=== PATIENT | male | born 1965 | race Caucasian/White ===

== ENCOUNTER 2024-03-08 10:25 | Outpatient (CLI) | payer OTHER, SELFPAY ==
[2024-03-08 18:29] LABS: Basophils # 0.1 K/mm3 (0-0.2); Eosinophils # 0.1 K/mm3 (0.0-0.4); Eosinophils % 1.3 % (0.1-12.0); Hematocrit 50.9 % (42.0-52.0); Hemoglobin 16.4 g/dL (14.1-18.0); Lymphocytes # 2.2 K/mm3 (0.7-4.5); Lymphocytes % 29.6 % (10-50); Mean Corpuscular HGB Conc 32.2 g/dL (31.8-35.4); Mean Corpuscular Hemoglobin 30.4 pg (27.0-31.2); Mean Corpuscular Volume 94.4 fl (80-94); Mean Platelet Volume 9.1 fl (7.4-10.4); Monocytes # 0.7 K/mm3 (0.1-1.0); Monocytes % 9.7 % (1.7-9.3); Neutrophils # 4.3 K/mm3 (1.8-7.8); Neutrophils % 58.5 % (37.0-80.0); Platelet Count 205 K/mm3 (142-424); Red Blood Count 5.39 M/mm3 (4.60-6.20); Red Cell Distribution Width 14.9 % (11.5-17.5); White Blood Count 7.4 K/mm3 (4.8-10.8)
[2024-03-08 18:35] LABS: Alanine Aminotransferase 47 U/L (12-78); Albumin Level 4.3 g/dl (3.5-5.0); Albumin/Globulin Ratio 1.5 (1.1-1.8); Alkaline Phosphatase 115 U/L (38-126); Anion Gap 13.8 mEq/L (5-15); Aspartate Amino Transferase 35 U/L (17-59); Bilirubin,Total 0.8 mg/dl (0.2-1.3); Blood Urea Nitrogen 11 mg/dl (9-20); Calcium 9.1 mg/dl (8.4-10.2); Carbon Dioxide 29 mmol/L (22.0-30.0); Chloride 99 mmol/L (98-107); Chol/HDL Ratio 6.8 (1-3.5); Cholesterol 258 mg/dl (140-200); Estimated Glomerular Filt Rate 100 ml/min (>60); GFR (African American) 121 ML/MIN (>60); Globulin 2.8 g/dL (1.3-3.2); Glucose 167 mg/dl (74-100); HDL Cholesterol 38 mg/dl (40-60); Potassium 3.8 mmoL/L (3.5-5.1); Sodium 138 mmol/L (136-145); Total Protein,Serum 7.1 g/dl (6.3-8.2); Triglycerides 281 mg/dl (30-150); VLDL Cholesterol 56 mg/dL (0-40)
[2024-03-08 18:45] LABS: Direct LDL Cholesterol 158.85 mg/dL (100-129)
[2024-03-08 19:07] LABS: Thyroid Stimulating Hormone 1.55 uIU/mL (0.465-4.68)
[2024-03-08 19:26] LABS: Vitamin B12 882 pg/mL (239-931)
[2024-03-08 19:49] LABS: Creatinine,Urine Random 45 mg/dL (Not Estab.); Microalbumin < 6.000 mg/L (0-16.7)
[2024-03-08 20:29] LABS: Hemoglobin A1C 7.5 % (4.0-6.0)
[2024-03-10 13:04] LABS: Testosterone,Total 119 ng/dL (264-916)
== END 2024-03-08 23:59 | disposition home or self-care (01) ==
LOC: LAB.DROPOF 03-09 10:25
PROVIDERS: PCP Nurse Practitioner; Visit Provider Nurse Practitioner
DX: E11.9 Type 2 diabetes mellitus without complications (principal); I10 Essential (primary) hypertension; K21.9 Gastro-esophageal reflux disease without esophagitis; E34.9 Endocrine disorder, unspecified; Z12.5 Encounter for screening for malignant neoplasm of prostate; E78.5 Hyperlipidemia, unspecified; Z79.899 Other long term (current) drug therapy
CPT/HCPCS: 80053; 80061; 82043; 82306; 82570; 82607; 83036; 84403; 84443; 85025

== ENCOUNTER 2024-03-27 09:40 | Outpatient (CLI) | payer OTHER, SELFPAY ==
[2024-03-27 11:03] LABS: Prostate Specific Ag Screen 4.5 ng/ml (0.0-4.0); Thyroid Stimulating Hormone 1.54 uIU/mL (0.465-4.68)
[2024-03-27 16:53] LABS: Microscopic, Urine URINE MICROSCOPIC (MICROSCOPIC)
[2024-03-27 18:18] LABS: Appearance,Urine CLEAR (Clear); Bilirubin,Urine Negative (Negative); Blood, Urine Negative (Negative); Color,Urine YELLOW (Yellow); Glucose,Urine (UA) 3+ (Negative); Ketones,Urine Negative (Negative); Leukocyte Esterase,Urine Negative (Negative); Nitrate,Urine Negative (Negative); PH,Urine 5.5 (5.0-8.5); Protein,Urine Negative (Negative); Urobilinogen,Urine 0.2 EU/dl (0.2)
[2024-03-27 19:01] LABS: Squamous Epithelial Cell,Urine Occasional #/hpf (0-5)
[2024-03-28 08:33] LABS: Sex Hormone Binding Globulin 15.1 nmol/L (19.3-76.4)
[2024-03-28 09:18] LABS: DHEA-Sulfate 74.2 ug/dL (48.9-344.2); FSH 5.5 mIU/mL (1.5-12.4); LH 4.5 mIU/mL (1.7-8.6); Prolactin 4.7 ng/mL (3.6-25.2); Prostate Specific Ag 4.5 ng/mL (0.0-4.0)
[2024-04-05 08:55] LABS: Dihydrotestosterone DHT 10
== END 2024-03-27 23:59 | disposition home or self-care (01) ==
LOC: LAB 09:40
PROVIDERS: PCP Nurse Practitioner; Visit Provider Urology
DX: N40.0 Benign prostatic hyperplasia without lower urinary tract symptoms (principal); R97.20 Elevated prostate specific antigen [PSA]; E29.1 Testicular hypofunction; N52.9 Male erectile dysfunction, unspecified
CPT/HCPCS: 36415; 81001; 82626; 82670; 83001; 83002; 84146; 84153; 84154; 84270; 84443; G0103

== ENCOUNTER 2024-03-29 12:41 | Outpatient (CLI) | payer OTHER, SELFPAY ==
--- NOTE | 2024-03-29 12:42 | CT_ITS ---
FINAL REPORT TECHNIQUE: Axial images were obtained from the lung apex to the mid abdomen by computed tomography. This study was performed with techniques to keep radiation doses as low as reasonably achievable (ALARA). Individualized dose reduction techniques using automated exposure control or adjustment of mA and/or kV according to the patient's size were employed. CLINICAL HISTORY: lung cancer screening former smoker 1.5-2ppd x13 years FINDINGS: CHEST CT LOW DOSE CTDI vol (mGy): 2.90 DLP (mGy-cm): 106.55 There is no axillary adenopathy. There is no hilar or mediastinal adenopathy. The heart is normal in size. There is no pericardial or pleural effusion. Lung window images demonstrate no suspicious infiltrate or nodule. Limited images of the upper abdomen demonstrate fatty infiltration of the liver. Patient is status post cholecystectomy. IMPRESSION: Lung RADS category 1. Recommend 12 month follow-up low-dose chest CT. Reviewed, Interpreted and Dictated by Peyman Lopez III, MD Transcribed by Maude Sparks Authenticated and [facility]
== END 2024-03-29 23:59 | disposition home or self-care (01) ==
LOC: RAD 12:42
PROVIDERS: PCP Nurse Practitioner; Visit Provider Nurse Practitioner
DX: Z87.891 Personal history of nicotine dependence (principal)
CPT/HCPCS: 71271

== ENCOUNTER 2024-06-14 09:30 | Outpatient (CLI) | payer OTHER, SELFPAY ==
[2024-06-14 19:28] LABS: Alanine Aminotransferase 39 U/L (12-78); Albumin Level 4.1 g/dl (3.5-5.0); Albumin/Globulin Ratio 1.5 (1.1-1.8); Alkaline Phosphatase 97 U/L (38-126); Anion Gap 11.1 mEq/L (5-15); Aspartate Amino Transferase 28 U/L (17-59); Bilirubin,Total 0.7 mg/dl (0.2-1.3); Blood Urea Nitrogen 14 mg/dl (9-20); Carbon Dioxide 29 mmol/L (22.0-30.0); Chloride 106 mmol/L (98-107); Chol/HDL Ratio 3.9 (1-3.5); Cholesterol 157 mg/dl (140-200); Estimated Glomerular Filt Rate 100 ml/min (>60); GFR (African American) 121 ML/MIN (>60); Globulin 2.7 g/dL (1.3-3.2); Glucose 223 mg/dl (74-100); HDL Cholesterol 40 mg/dl (40-60); Potassium 4.1 mmoL/L (3.5-5.1); Sodium 142 mmol/L (136-145); Total Protein,Serum 6.8 g/dl (6.3-8.2); Triglycerides 219 mg/dl (30-150); VLDL Cholesterol 44 mg/dL (0-40)
[2024-06-14 19:39] LABS: Direct LDL Cholesterol 87.09 mg/dL (100-129)
[2024-06-14 19:45] LABS: 25-OH Vitamin D, Total 47.5 ng/mL (30-100)
[2024-06-14 19:55] LABS: Hemoglobin A1C 6.6 % (4.0-6.0)
== END 2024-06-14 23:59 | disposition home or self-care (01) ==
LOC: LAB.DROPOF 06-15 12:33
PROVIDERS: PCP Nurse Practitioner; Visit Provider Nurse Practitioner
DX: E11.9 Type 2 diabetes mellitus without complications (principal); Z79.84 Long term (current) use of oral hypoglycemic drugs; I10 Essential (primary) hypertension; E78.5 Hyperlipidemia, unspecified; E55.9 Vitamin D deficiency, unspecified; Z87.891 Personal history of nicotine dependence
CPT/HCPCS: 80053; 80061; 82306; 83036

== ENCOUNTER 2024-07-31 12:05 | Outpatient (CLI) | payer OTHER, SELFPAY ==
[2024-07-31 20:33] LABS: Hemoglobin A1C 7.1 % (4.0-6.0)
[2024-07-31 20:48] LABS: Alanine Aminotransferase 48 U/L (12-78); Albumin Level 4.4 g/dl (3.5-5.0); Albumin/Globulin Ratio 1.7 (1.1-1.8); Alkaline Phosphatase 146 U/L (38-126); Anion Gap 10.2 mEq/L (5-15); Aspartate Amino Transferase 33 U/L (17-59); Bilirubin,Total 0.7 mg/dl (0.2-1.3); Blood Urea Nitrogen 19 mg/dl (9-20); Calcium 9.3 mg/dl (8.4-10.2); Carbon Dioxide 27 mmol/L (22.0-30.0); Chloride 103 mmol/L (98-107); Estimated Glomerular Filt Rate 87 ml/min (>60); GFR (African American) 105 ML/MIN (>60); Globulin 2.6 g/dL (1.3-3.2); Glucose 132 mg/dl (74-100); Potassium 4.2 mmoL/L (3.5-5.1); Sodium 136 mmol/L (136-145)
== END 2024-07-31 23:59 | disposition home or self-care (01) ==
LOC: LAB.DROPOF 08-01 10:07
PROVIDERS: PCP Nurse Practitioner; Visit Provider Nurse Practitioner
DX: E11.9 Type 2 diabetes mellitus without complications (principal); Z79.85 Long-term (current) use of injectable non-insulin antidiabetic drugs
CPT/HCPCS: 80053; 83036

== ENCOUNTER 2024-08-16 16:17 | Outpatient (CLI) | payer OTHER, SELFPAY ==
[2024-08-16 17:12] LABS: Erythrocyte Sedimentation Rate 11 mm/hr (0-20)
[2024-08-18 13:15] LABS: Sjogren's Anti-SS-A <0.2 AI (0.0-0.9); Sjogren's Anti-SS-B <0.2 AI (0.0-0.9)
== END 2024-08-16 23:59 | disposition home or self-care (01) ==
LOC: LAB 16:17
PROVIDERS: PCP Nurse Practitioner; Visit Provider Otolaryngology
DX: K11.7 Disturbances of salivary secretion (principal); Z72.0 Tobacco use
CPT/HCPCS: 36415; 85651; 86235

== ENCOUNTER 2024-11-21 13:29 | Outpatient (CLI) | payer OTHER, SELFPAY ==
[2024-11-21 18:46] LABS: Microalbumin/Creatinine Ratio 13.3
[2024-11-21 18:51] LABS: Alanine Aminotransferase 48 U/L (12-78); Albumin Level 4.3 g/dl (3.5-5.0); Albumin/Globulin Ratio 1.9 (1.1-1.8); Alkaline Phosphatase 105 U/L (38-126); Aspartate Amino Transferase 34 U/L (17-59); Bilirubin,Total 0.3 mg/dl (0.2-1.3); Blood Urea Nitrogen 15 mg/dl (9-20); Calcium 9.1 mg/dl (8.4-10.2); Carbon Dioxide 24 mmol/L (22.0-30.0); Chloride 106 mmol/L (98-107); Chol/HDL Ratio 5.3 (1-3.5); Cholesterol 158 mg/dl (140-200); Estimated Glomerular Filt Rate 116 ml/min (>60); GFR (African American) 140 ML/MIN (>60); Globulin 2.3 g/dL (1.3-3.2); Glucose 133 mg/dl (74-100); HDL Cholesterol 30 mg/dl (40-60); Sodium 141 mmol/L (136-145); Total Protein,Serum 6.6 g/dl (6.3-8.2); Triglycerides 274 mg/dl (30-150); VLDL Cholesterol 55 mg/dL (0-40)
[2024-11-21 19:00] LABS: Creatinine,Urine Random 68 mg/dL (Not Estab.); Hemoglobin A1C 6.8 % (4.0-6.0)
[2024-11-21 19:01] LABS: Direct LDL Cholesterol 98.77 mg/dL (100-129)
[2024-11-21 19:11] LABS: 25-OH Vitamin D, Total 63.3 ng/mL (30-100)
== END 2024-11-21 23:59 | disposition home or self-care (01) ==
LOC: LAB.DROPOF 11-22 13:30
PROVIDERS: PCP Nurse Practitioner; Visit Provider Nurse Practitioner
DX: E78.5 Hyperlipidemia, unspecified (principal); I10 Essential (primary) hypertension; K21.9 Gastro-esophageal reflux disease without esophagitis; E55.9 Vitamin D deficiency, unspecified; E11.9 Type 2 diabetes mellitus without complications; Z79.84 Long term (current) use of oral hypoglycemic drugs; F17.200 Nicotine dependence, unspecified, uncomplicated
CPT/HCPCS: 80053; 80061; 82043; 82306; 82570; 83036

== ENCOUNTER 2025-01-08 10:21 | Emergency (ER) | payer OTHER, SELFPAY ==
[2025-01-08 10:29] VITALS: BP 139/89; PULSE 70; RESP 18; TEMP 36.9; O2SAT 97; BMI 33.2
--- NOTE | 2025-01-08 10:48 | PC.NURSE ---
BLOOD WORK SENT TO LAB
[2025-01-08 10:55] LABS: Basophils # 0.1 K/mm3 (0-0.2); Basophils % 0.8 % (0.1-2.0); Eosinophils # 0.1 K/mm3 (0.0-0.4); Eosinophils % 0.9 % (0.1-12.0); Hematocrit 40.2 % (42.0-52.0); Hemoglobin 13.5 g/dL (14.1-18.0); Lymphocytes # 1.2 K/mm3 (0.7-4.5); Lymphocytes % 19.2 % (10-50); Mean Corpuscular HGB Conc 33.6 g/dL (31.8-35.4); Mean Corpuscular Hemoglobin 29.3 pg (27.0-31.2); Mean Corpuscular Volume 87.4 fl (80-94); Mean Platelet Volume 9.3 fl (7.4-10.4); Monocytes # 0.8 K/mm3 (0.1-1.0); Monocytes % 11.9 % (1.7-9.3); Neutrophils # 4.3 K/mm3 (1.8-7.8); Neutrophils % 66.7 % (37.0-80.0); Platelet Count 155 K/mm3 (142-424); Red Cell Distribution Width 12.9 % (11.5-17.5); White Blood Count 6.5 K/mm3 (4.8-10.8)
[2025-01-08 10:58] VITALS: BP 138/88; PULSE 70; O2SAT 97
[2025-01-08 11:00] VITALS: BP 117/79; PULSE 74; O2SAT 97
--- NOTE | 2025-01-08 11:00 | PC.NURSE ---
MED LIST UPDATED, PT UPDATED ON POC. CALL LIGHT WITHIN REACH. NO NEEDS AT THIS TIME
--- NOTE | 2025-01-08 11:00 | HMH.EDGENADL ---
Discharge Plan Disposition Patient Disposition: Home, Self-Care Condition: Good Prescriptions Prescriptions: No Action Fish Oil 100-160-1,000 mg capsule 2 cap PO DAILY (DME) Dexcom G7 Internal Medicine Physician Assistant Misc See Rx Instructions .Route Qty: 1 11RF Rx Instructions: As directed fluticasone propionate 50 mcg/actuation spray,suspension 1 spray intranasal DAILY Qty: 48 3RF Rx Instructions: administer into each nostril triamcinolone acetonide 0.1 % paste 1 applic dental BID 10 Days Qty: 5 1RF Rx Instructions: use after food and/or drink and/or oral hygiene amlodipine 5 mg tablet 5 mg PO DAILY Qty: 90 1RF atorvastatin [Lipitor] 20 mg tablet 20 mg PO DAILY Qty: 90 1RF (DME) Dexcom G7 Sensor Device See Rx Instructions .Route Qty: 9 4RF Rx Instructions: As directed dapagliflozin propanediol [Farxiga] 10 mg tablet 10 mg PO DAILY Qty: 90 1RF lisinopril 20 mg tablet 20 mg PO DAILY Qty: 90 1RF meloxicam 15 mg tablet 15 mg PO DAILY Qty: 90 1RF metformin 500 mg tablet extended release 24 hr 1,000 mg PO DAILY Qty: 180 1RF methocarbamol 500 mg tablet 500 - 1,000 mg PO HS Qty: 180 1RF omeprazole 20 mg capsule,delayed release(DR/EC) 20 mg PO DAILY Qty: 90 1RF oxybutynin chloride 10 mg tablet extended release 24hr 10 mg PO DAILY Qty: 90 3RF pantoprazole [Protonix] 40 mg tablet,delayed release (DR/EC) 40 mg PO DAILY Qty: 90 1RF tamsulosin [Flomax] 0.4 mg capsule 0.4 mg PO DAILY 90 Days Qty: 90 1RF glimepiride 2 mg tablet 2 mg PO BIDWMEAL Qty: 180 1RF aripiprazole [Abilify] 10 mg tablet 10 mg PO DAILY Qty: 90 0RF buspirone 10 mg tablet 10 mg PO TID PRN (Reason: anxiety) Qty: 270 1RF desvenlafaxine succinate [Pristiq] 100 mg tablet extended release 24 hr 100 mg PO DAILY Qty: 90 3RF trazodone 50 mg tablet 50 - 75 mg PO DAILY Qty: 135 0RF prazosin 1 mg capsule 1 mg PO HS Qty: 90 3RF prazosin 2 mg capsule 2 mg PO HS Qty: 90 1RF hydroxyzine pamoate 25 mg capsule 25 - 50 mg PO HS PRN (Reason: sleep) Qty: 180 1RF cholecalciferol (vitamin D3) 125 mcg (5,000 unit) tablet 125 mcg PO DAILY Qty: 90 1RF Referrals Follow up/Referrals: Liliane Tabares APRN [Primary Care Provider] - See instructions Activity Restrictions/Add. Instructions Additional Instructions/Restrictions: You were evaluated in the emergency department today. Please keep the wound clean and dry. Monitor for any worsening of redness, warmth, pain, or swelling. Monitor for any pus draining from the wound. Return to the emergency department right away for new or worsening symptoms. Follow-up with your primary care provider over the next week for recheck of your wound. Clinical Impressions Clinical Impression: Brown recluse spider bite Instructions Patient Instructions: DI for Insect Bites and Stings, DI for Spider Bites Print Language Print Language: Hebrew Discharge ED Provider: Katey Gatica General Adult HPI General Chief complaint: Skin/Abscess/Foreign Body Stated complaint: bitten by brown recluse Time Seen by Provider: 01/08/25 10:37 Mode of Arrival: Ambulatory Description of Symptoms (Recalled from ER Triage Doc. by RN): PT REPORTS BROWN RECLUSE SPIDER BITE UNDER RIGHT BREAST, NOTED SOMETIME LAST WEEK WHILE AT WORK. RED AREA NOTED History of Present Illness HPI narrative: This patient is a 59-year-old male with a history of type 2 diabetes, hypertension, hyperlipidemia, PTSD, NITIN, BPH presenting to the emergency department for evaluation with concern for a possible brown recluse bite to his right upper abdomen. 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 He notes that initially he had a red area but now has started to note some dark area of discoloration in the center of the wound, concerning him for brown recluse bite. No easy bleeding or bruising noted, no significant abdominal pain, vomiting, changes bowel movements, or other concerns. He has not had any sort of fever. He has localized redness and pain, but otherwise has not noted any significant concerns or complaints. Related Data Home Medications ?Medication ?Instructions ?Recorded ?Confirmed omega 8-oxe-gxs-fish oil 100 2 cap PO DAILY 03/08/24 01/08/25 mg-160 mg-1,000 mg capsule (Fish Oil) Previous Rx's ?Medication ?Instructions ?Recorded blood-glucose meter,continuous #1 ea 06/14/24 (Dexcom G7 Internal Medicine Physician Assistant) fluticasone propionate 50 1 spray intranasal DAILY #48 grams 06/14/24 mcg/actuation nasal spray,suspension triamcinolone acetonide 0.1 % 1 applic dental BID 10 days #5 08/16/24 dental paste grams aripiprazole 10 mg tablet (Abilify) 10 mg PO DAILY #90 tabs 09/26/24 buspirone 10 mg tablet 10 mg PO TID PRN anxiety #270 tabs 09/26/24 desvenlafaxine succinate 100 mg 100 mg PO DAILY #90 tabs 09/26/24 tablet,extended release 24 hr (Pristiq) amlodipine 5 mg tablet 5 mg PO DAILY #90 tabs 11/21/24 atorvastatin 20 mg tablet (Lipitor) 20 mg PO DAILY #90 tabs 11/21/24 blood-glucose sensor (Dexcom G7 #9 ea 11/21/24 Sensor device) dapagliflozin propanediol 10 mg 10 mg PO DAILY #90 tabs 11/21/24 tablet (Farxiga) glimepiride 2 mg tablet 2 mg PO BIDWMEAL #180 tabs 11/21/24 hydroxyzine pamoate 25 mg capsule 25 - 50 mg (1 - 2 x 25 mg) PO HS 11/21/24 PRN sleep #180 caps lisinopril 20 mg tablet 20 mg PO DAILY #90 tabs 11/21/24 meloxicam 15 mg tablet 15 mg PO DAILY #90 tabs 11/21/24 metformin 500 mg tablet,extended 1,000 mg (2 x 500 mg) PO DAILY 11/21/24 release 24 hr #180 tabs methocarbamol 500 mg tablet 500 - 1,000 mg (1 - 2 x 500 mg) PO 11/21/24 HS #180 tabs omeprazole 20 mg capsule,delayed 20 mg PO DAILY #90 caps 11/21/24 release oxybutynin chloride 10 mg 10 mg PO DAILY #90 tabs 11/21/24 tablet,extended release 24 hr pantoprazole 40 mg tablet,delayed 40 mg PO DAILY #90 tabs 11/21/24 release (Protonix) prazosin 1 mg capsule 1 mg PO HS #90 caps 11/21/24 prazosin 2 mg capsule 2 mg PO HS #90 caps 11/21/24 tamsulosin 0.4 mg capsule (Flomax) 0.4 mg PO DAILY 90 days #90 caps 11/21/24 trazodone 50 mg tablet 50 - 75 mg (1 - 1.5 x 50 mg) PO 11/21/24 DAILY #135 tabs cholecalciferol (vitamin D3) 125 125 mcg PO DAILY #90 tabs 11/23/24 mcg (5,000 unit) tablet Allergies Allergy/AdvReac Type Severity Reaction Status Date / Time acetaminophen (From Percocet) Allergy Unknown Hives Verified 01/08/25 11:03 oxycodone (From Percocet) Allergy Unknown Hives Verified 01/08/25 11:03 Penicillins Allergy Hives Verified 01/08/25 11:03 aspirin AdvReac Mild Nausea Verified 01/08/25 11:03 [facility] Disclaimer: The information contained in this section may have been updated after the patient was seen, as this information can be updated by other users. Medical History NITIN (obstructive sleep apnea) Vitamin D deficiency Sleep disturbances Neoplasm of uncertain behavior of skin of face Insomnia, unspecified Personal history of smoking Allergic rhinitis BPH (benign prostatic hyperplasia) Erectile dysfunction Hyperlipidemia Hypotestosteronemia GERD (gastroesophageal reflux disease) Essential hypertension Type 2 diabetes mellitus without complications Tear meniscus knee High cholesterol Diabetes Hypertension Depression Anxiety Low testosterone Erectile disorder PTSD (post-traumatic stress disorder) Surgical History History of colonoscopy History of left knee replacement Hx of cholecystectomy H/O hernia repair Family History Father Cancer Stroke Grandmother Stroke Grandfather Coronary artery disease Social History Smoking Status: Current every day smoker alcohol intake: current alcohol intake frequency: a few times a week substance use type: denies use current occupational status: employed Travel in the last 8 weeks: Inside the [place] number of children: 8 Have you lived/traveled outside [place] in past 30 days?: No Contact w/someone who lives/traveled outside [place] past 30 days?: No Exposure to someone with infectious disease in past 14 days?: No Do you have a fever (greater than 100.4 F or 38 C)?: No Have you tested positive for COVID-19: No Exposed to someone with COVID-19 in past 14 days?: No Do you have a sore throat?: No Do you have a cough?: No Do you have any weakness?: No Do you have any diarrhea?: No Are you experiencing any unusual bleeding?: No Do you have any muscle aches/pain?: No Do you have any abdominal pain?: No Are you experiencing loss of taste or smell?: No Other Medical History Have you received the Flu Vaccine for this season: No Have you received the Pneumonia Vaccine: No ROS Obtained: Yes All systems reviewed & no additional complaints except as documented Physical Exam General General appearance: alert and in no apparent distress Head Head exam: atraumatic and normocephalic Eye Eye exam: Present normal appearance, PERRL and EOMI ENT ENT exam: Present normal exam, normal oropharynx, mucous membranes moist and normal external ear exam Neck Neck exam: Present normal inspection, full ROM and trachea midline; Absent tenderness Chest Chest inspection: Present normal inspection and symmetric chest wall rise; Absent tenderness Respiratory Respiratory exam: Present normal lung sounds bilaterally; Absent respiratory distress, wheezes, stridor or accessory muscle use Cardiovascular Cardiovascular exam: Present regular rate and normal rhythm Abdominal Exam Abdominal exam: Present soft; Absent distention, tenderness or guarding Extremities Exam Extremities exam: Present normal inspection, full ROM and normal capillary refill; Absent tenderness or edema Back Exam Back exam: Present normal inspection and full ROM; Absent tenderness Neurological Exam Neurological exam: Present alert, oriented X3, CN II-XII intact and normal gait; Absent motor sensory deficit Psychiatric Psychiatric exam: Present normal affect and normal mood Skin Skin exam: Present warm and dry Expanded Skin Exam Body image: 1. Localized area of erythema (6cm x 2cm) with central subcentimeter hemorrhagic blister, no induration or fluctuance, no purulence Medical Decision Making Medical Records Medical records reviewed: Yes I reviewed the patient's medical records. Screening: Per USPSTF and CDC recommendations, given the prevalence of disease in our region, it is our hospital?s policy to screen for HIV and viral Hepatitis for all patients aged 18 and over and those with ongoing risk factors. G[place]berto Inquiry Pt receiving controlled substance: No Vital Signs: 01/08/25 10:29 01/08/25 10:58 01/08/25 11:00 Temperature 98.4 F Temperature Source Oral Pulse Rate 70 74 Pulse Rate [Radial] 70 Respiratory Rate 18 Blood Pressure 138/88 117/79 Blood Pressure [Right Arm] 139/89 Blood Pressure Mean [Right Arm] 105 Blood Pressure Source Blood Pressure Source [Right Arm] Automatic Cuff Blood Pressure Position Blood Pressure Position [Right Arm] Sitting 02 Sat by Pulse Oximetry 97 97 97 Oxygen Delivery Method Room Air Room Air Room Air 01/08/25 11:28 Temperature 98.4 F Temperature Source Oral Pulse Rate 78 Pulse Rate [Radial] Respiratory Rate 18 Blood Pressure 117/79 Blood Pressure [Right Arm] Blood Pressure Mean [Right Arm] Blood Pressure Source Automatic Cuff Blood Pressure Source [Right Arm] Blood Pressure Position Sitting Blood Pressure Position [Right Arm] 02 Sat by Pulse Oximetry Oxygen Delivery Method Room Air Lab Data Lab results reviewed: Yes I reviewed the patient's lab results. Lab Results 01/08/25 10:46: WBC 6.5, RBC 4.60, Hgb 13.5 L, Hct 40.2 L, MCV 87.4, MCH 29.3, MCHC 33.6, RDW 12.9, Plt Count 155, MPV 9.3, Neut % (Auto) 66.7, Lymph % (Auto) 19.2, Cobb % (Auto) 11.9 H, Eos % (Auto) 0.9, Baso % (Auto) 0.8, Neut # (Auto) 4.3, Lymph # (Auto) 1.2, Cobb # (Auto) 0.8, Eos # (Auto) 0.1, Baso # (Auto) 0.1, PT 10.9, INR 0.97, APTT 25.7, Sodium 136, Potassium 3.8, Chloride 106, Carbon Dioxide 23, Anion Gap 10.8, BUN 17, Creatinine 0.70, Estimated Creat Clear 181, Estimated GFR 116, Est GFR ( Amer) 140, Glucose 119 H, Calcium 9.0, Total Bilirubin 0.5, AST 32, ALT 42, Alkaline Phosphatase 106, Total Protein 6.4, Albumin 4.3, Globulin 2.1, Albumin/Globulin Ratio 2.0 H, HCV Ab MICA w/Rflx PCR Qn Negative, HIV Ag/Ab Combo Qual Negative 01/08/25 10:46 01/08/25 10:46 Orders (Tests/Meds): ORDERS Category Date Time Status Complete Blood Count Auto Diff Stat Lab 01/08/25 10:46 Completed Comprehensive Metabolic Panel Stat Lab 01/08/25 10:46 Completed HIV Combo Stat Lab 01/08/25 10:46 Completed Hepatitis C Ab Qual. W/ RFX Stat Lab 01/08/25 10:46 Completed PT INR [Prothrombin Time INR] Stat Lab 01/08/25 10:46 Completed PTT [Activated Partial Thrombo Time] Stat Lab 01/08/25 10:46 Completed Medical Decision Narrative: In summary, this patient is a 59-year-old male presenting to the Emergency Department for evaluation of possible brown recluse bite to the right upper abdomen. Differential diagnoses considered include but are not limited to viral close bite, other insect bite, cellulitis, abscess. Ruling out the most morbid conditions drove assessment. It should be noted patient's history includes hypertension, hyperlipidemia, diabetes which may or may not be at goal therapy. This complicates all aspects of care by increasing patient's risk for morbidity. I reviewed patient's past medical records and noted prior PCP evaluations for maintenance of his chronic medical issues. On exam, the patient is sitting upright in no acute distress. Vitals are normal on cardiac telemetry. He has a 6 x 2 cm localized area of erythema to the right upper abdomen with a central hemorrhagic blister that is subcentimeter. No induration, fluctuance, or purulence. Given the central hemorrhagic area, it is possible this could be a brown recluse bite. We are now a week out without significant ulceration. He is up to date on tetanus. Workup included CBC, CMP, coags. On reassessment, the patient is sitting upright in no acute distress. Labs are reassuring with normal CBC, chemistry, no coagulopathy. Given this, I feel it is appropriate for discharge with instructions for wound care and strict return precautions. He was discharged after all questions were answered. Critical Care Critical Care Time Critical Care Time: No
[2025-01-08 11:01] LABS: Albumin Level 4.3 g/dl (3.5-5.0); Chloride 106 mmol/L (98-107); Potassium 3.8 mmoL/L (3.5-5.1); Sodium 136 mmol/L (136-145)
[2025-01-08 11:03] LABS: Blood Urea Nitrogen 17 mg/dl (9-20)
[2025-01-08 11:04] LABS: Alanine Aminotransferase 42 U/L (12-78); Alkaline Phosphatase 106 U/L (38-126); Anion Gap 10.8 mEq/L (5-15); Aspartate Amino Transferase 32 U/L (17-59); Bilirubin,Total 0.5 mg/dl (0.2-1.3); Carbon Dioxide 23 mmol/L (22.0-30.0); Creatinine Clearance Estimated 181 mL/min (50-200); Estimated Glomerular Filt Rate 116 ml/min (>60); GFR (African American) 140 ML/MIN (>60); Globulin 2.1 g/dL (1.3-3.2); Glucose 119 mg/dl (74-100); Total Protein,Serum 6.4 g/dl (6.3-8.2)
[2025-01-08 11:21] LABS: Activated Partial Thrombo Time 25.7 seconds (22.8-30.6); INR 0.97 (0.9-1.1); Prothrombin Time 10.9 seconds (10.1-12.5)
--- NOTE | 2025-01-08 11:27 | PC.NURSE ---
DR CONN AT BEDSIDE TO UPDATE PT
[2025-01-08 11:28] VITALS: BP 117/79; PULSE 78; RESP 18; TEMP 36.9; O2SAT 98
[2025-01-08 12:00] LABS: HIV Combo NEGATIVE (Negative)
[2025-01-08 12:08] LABS: Hepatitis C Ab Qual. W/ RFX NEGATIVE (Negative)
== END 2025-01-08 11:30 | disposition home or self-care (01) ==
PROVIDERS: Emergency Provider Emergency Medicine; PCP Nurse Practitioner
DX: T63.331A Toxic effect of venom of brown recluse spider, accidental (unintentional), initial encounter (principal); Z72.0 Tobacco use; Y92.89 Other specified places as the place of occurrence of the external cause
CPT/HCPCS: 80053; 85025; 85610; 85730; 86803; 87389; 99283

== ENCOUNTER 2025-02-21 08:51 | Outpatient (CLI) | payer OTHER, SELFPAY ==
[2025-02-21 19:06] LABS: Alanine Aminotransferase 33 U/L (12-78); Albumin Level 4.2 g/dl (3.5-5.0); Albumin/Globulin Ratio 1.9 (1.1-1.8); Alkaline Phosphatase 108 U/L (38-126); Anion Gap 9.1 mEq/L (5-15); Aspartate Amino Transferase 26 U/L (17-59); Bilirubin,Total 0.6 mg/dl (0.2-1.3); Blood Urea Nitrogen 16 mg/dl (9-20); Calcium 9.1 mg/dl (8.4-10.2); Carbon Dioxide 24 mmol/L (22.0-30.0); Chloride 109 mmol/L (98-107); Cholesterol 141 mg/dl (140-200); Estimated Glomerular Filt Rate 116 ml/min (>60); GFR (African American) 140 ML/MIN (>60); Globulin 2.2 g/dL (1.3-3.2); Glucose 112 mg/dl (74-100); HDL Cholesterol 35 mg/dl (40-60); Potassium 4.1 mmoL/L (3.5-5.1); Sodium 138 mmol/L (136-145); Total Protein,Serum 6.4 g/dl (6.3-8.2); Triglycerides 183 mg/dl (30-150); VLDL Cholesterol 37 mg/dL (0-40)
[2025-02-21 19:10] LABS: Hemoglobin A1C 6.6 % (4.0-6.0)
[2025-02-21 19:17] LABS: Direct LDL Cholesterol 76.14 mg/dL (100-129)
[2025-02-21 19:35] LABS: Thyroid Stimulating Hormone 0.83 uIU/mL (0.465-4.68)
[2025-02-21 19:54] LABS: Vitamin B12 636 pg/mL (239-931)
== END 2025-02-21 23:59 | disposition home or self-care (01) ==
LOC: LAB.DROPOF 02-23 08:51
PROVIDERS: PCP Nurse Practitioner; Visit Provider Nurse Practitioner
DX: E78.5 Hyperlipidemia, unspecified (principal); E11.9 Type 2 diabetes mellitus without complications; I10 Essential (primary) hypertension; K21.9 Gastro-esophageal reflux disease without esophagitis; F17.200 Nicotine dependence, unspecified, uncomplicated; Z79.84 Long term (current) use of oral hypoglycemic drugs
CPT/HCPCS: 80053; 80061; 82607; 83036; 84443

== ENCOUNTER 2025-08-22 10:56 | Outpatient (CLI) | payer OTHER, SELFPAY ==
--- OUTSIDE RECORDS SUMMARY | 2025-07-12 10:33 | XMS_ITS | Encounter Summary ---
Author Organization [place] [address] Care Team Providers Care Director Medicaid Name Role Phone Irving Amaya MD Primary Care Provider Reason for Visit * Physical Therapy (Routine) - Authorized Specialty Diagnoses / Procedures Referred By Contac t Referred To Contact Physical Therapy Diagnoses DX UNK Procedures PT EVAL [address] [facility] Physical Therapy [place] [id number] Phone: tel: fax: Referral ID Status Reason Start Date Expiration Date V isits Requested Visits Authorized [id number] Authorized 05/30/2025 05/30/2026 8 25 Encounter Details Date Type Department Care Team (Latest Contact Info) Description 07/12/2025 10:33 AM EDT - 07/12/2025 11:44 AM EDT Hospital Encounter [facility] [place] [address] Brandy Edmondson PT Discharge Disposition: Home or Self Care Social History Tobacco Use Types Packs/Day Years Used Date Smoking Tobacco: Former Cigarettes 1 18 0 10/25/1983 - 10/25/2001 Smokeless Tobacco: Former Snuff Quit: 11/25/2022 Comments:Oral Tobacco Alcohol Use Standard Drinks/Week Comments Yes 0 (1 standard drink = 0.6 oz pure alcohol) One to two drinks of Alcohol per month Overall Financial Resource Strain (CARDIA) Answe r Date Recorded How hard is it for you to pa y for the very basics like food, housing, medical care, and heating? Somewhat hard 06/14/2023 PHQ-2 Answer Date Recorded PHQ-2 Score 0 03/15/2019 [facility] - Occupational Stress Questionnaire Answer Date Recorded Do you feel stress - tense, restless, nervous, or anxious, or unable to sleep at night because your mind is troubled all the time - these days? Rather much 06/14/2023 Exercise Vital Sign Answer Date Recorde d On average, how many days pe r week do you engage in moderate to strenuous exercise (like a brisk walk)? 4 days Minutes of Exercise per Session Not on file 06/14/2023 Hunger Vital Sign Answer Date Recorded Within the past 12 months, y ou worried that your food would run out before you got the money to buy more. Sometimes true Within the past 12 months, t he food you bought just didn't last and you didn't have money to get more. Never true PRAPARE - Transportation Answer Date Re corded In the past 12 months, has l ack of transportation kept you from medical appointments or from getting medications? No 05/26 In the past 12 months, has l ack of transportation kept you from meetings, work, or from getting things needed for daily living? No 06/14/2023 Housing Stability Vital Sign Answer Andrew e Recorded In the last 12 months, was t here a time when you were not able to pay the mortgage or rent on time? Yes 06/14/2023 In the last 12 months, how many places have you lived? 1 06/14/2023 In the last 12 months, was t here a time when you did not have a steady place to sleep or slept in a mcc (including now)? No 06/14/2023 Sexually Active Control Partners Comments Yes Female Sex and Gender Information Value Date Recorded Sex Assigned at Not on file Legal Sex Male 4:13 PM EST Gender Identity Not on file Sexual Orientation Not on file documented as of this encounter Medications at Time of Discharge amLODIPine (NORVASC) 5 mg Oral TabletIndications:T ype 2 diabetes mellitus without complication, unspecified whether intermediate insulin use TAKE 1 TABLET BY MOUTH EVERY DAY 30 Tablet 3 ARIPiprazole (ABILIFY) 5 mg Oral TabletIndications:A nxiety TAKE 1 TABLET BY MOUTH EVERY DAY 30 Tablet 4 atorvastatin (LIPITOR) 20 mg Oral TabletIndications:T ype 2 diabetes mellitus without complication, 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 MAY TAKE ADDITIONAL DOSE AT BEDTIME 120 Tablet 3 dulaglutide (TRULICITY) 1.5 mg/0.5 mL SubQ Pen InjectorIndications :Type 2 diabetes mellitus without complication, unspecified whether intermediate insulin use,Type 2 diabetes mellitus without complication, without long-term current use of insulin (HCC) Subcutaneous (Inject under the skin) 0.5 mL once a week. 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 1 Bottle 2 6 gabapentin (NEURONTIN) 300 mg Oral CapsuleIndications: Chronic bilateral low back pain without sciatica TAKE 3 CAPSULES BY MOUTH 3 TIMES DAILY. 270 Capsule 5 3 lisinopriL (PRINIVIL;ZESTRIL) 20 mg Oral Tablet tabletIndications:T ype 2 diabetes mellitus without complication, without long-term current use of insulin (HCC) TAKE 1 TABLET BY MOUTH EVERY DAY 30 Tablet 4 metFORMIN (GLUCOPHAGE XR) 500 mg Oral ER 24 hr tabletIndications:T ype 2 diabetes mellitus without complication, without long-term current use of insulin (HCC),Type 2 diabetes mellitus without complication, unspecified whether intermediate insulin use TAKE 2 TABLETS BY MOUTH DAILY (WITH BREAKFAST). NEEDS APPT 180 Tablet 3 methocarbamoL (ROBAXIN) 500 mg Oral TabletIndications:C hronic cervical pain,Radicular pain in right arm TAKE 1-2 TABLETS BY MOUTH NIGHTLY NEEDED FOR MUSCLE SPASMS. 30 Tablet 3 multivitamin (THERAGRAN) Oral TabletIndications:D iabetes type 2, controlled (HCC) Take 1 Tab by mouth daily. Prxtq-3-IWY-EPA-Fis h Oil (FISH OIL) 1,000 mg (120 mg-180 mg) Oral CapsuleIndications: Hyperlipidemia, unspecified hyperlipidemia type Take 2,000 mg by mouth daily. 8 omeprazole (PRILOSEC) 20 mg Oral Capsule, Delayed Release(E.C.)Indica tions:Gastroesophag eal reflux disease with esophagitis without hemorrhage TAKE 1 CAPSULE BY MOUTH 2 TIMES DAILY (BEFORE MEALS). 60 Capsule 4 pantoprazole (PROTONIX) 40 mg Oral Tablet, Delayed Release (E.C.)Indications:G astroesophageal reflux disease with esophagitis without hemorrhage TAKE 1 TABLET BY MOUTH DAILY. TAKE IN AM 30 Tablet 4 prazosin (MINIPRESS) 2 mg Oral Capsule TAKE 1 CAPSULE BY MOUTH EVERY NIGHT 30 Capsule 3 sildenafiL, pulm.hypertension, (REVATIO) 20 mg Oral Tablet Take 1-5 Tabs by mouth daily as needed. 30 Tab 5 1 SITagliptin phosphate (JANUVIA) 50 mg Oral Tablet TAKE 1 TABLET BY MOUTH EVERY DAY 30 Tablet 4 tamsulosin (FLOMAX) 0.4 mg Oral CapsuleIndications: BPH without urinary obstruction TAKE 1 CAPSULE BY MOUTH EVERY DAY AT NIGHT 30 Capsule 4 testosterone enanthate (XYOSTED) 100 mg/0.5 mL SubQ Auto-InjectorIndica tions:Low testosterone Subcutaneous (Inject under the skin) 100 mg once a week. 6 Each 1 3 Varenicline 0.5 mg (11)- 1 mg (42) Oral Tablets, Dose PackIndications:Smo keless tobacco use TAKE DIRECTED ON DOSE PACK 53 Tablet 3 documented as of this encounter Discharge Disposition Disposition Code Departure Means Destination Home or Self Care documented in this encounter Progress Notes * Sandro Lacey - 07/12/2025 11:21 AM EDT Program_ID:[id number] Access Code: [email or web address] URL: [email or web address] Date: 07-12-2025 Prepared By: Brandy Wright Notes Exercises - Supine Lower Trunk Rotation - 1-2 x daily - x weekly - 2 sets - 10 reps - Supine Single Knee to Chest Stretch - 1-2 x daily - x weekly - sets - 2 reps - Sidelying Hip Abduction - x daily - x weekly - 2 sets - 10 reps - Supine Bridge - x daily - x weekly - 2 sets - 10 reps - Prone Alternating Arm and Leg Lifts - x daily - x weekly - 2 sets - 10 reps - Quadruped Hip Extension Kicks - x daily - x weekly - 2 sets - 10 reps - Standing Hip Extension - x daily - x weekly - 2 sets - 10 reps - Standing Shoulder and Trunk Flexion at Table - 1-2 x daily - x weekly - sets - 2 reps - Squat with Chair Touch - x daily - x weekly - 2 sets - 10 reps * Brandy Edmondson, PT - 07/12/2025 10:45 AM EDT Images from the original note were not included. Physical Therapy Treatment Note / reassessment Patient Name: Jimmy Goff Gee : 1965 07/12/2025 Visit #: 3 Onset Date: 05-02-25 (sx date) Diagnosis: Restrictions/Precautions: [place] ; prostate CA; ?Sjogren's; taking FLOMAX and oxybutynin Physician: Onur VALIENTE Follow Up: 07-13-25 - Dr Mohr - Evaluation Date: 06/05/2025 Reassessment Due: 08/11/2025 Primary Insurance: [employer] [facility] [id number] Secondary Insurance: N/A Insurance Authorization: Physical Therapist Authorized (05/30/2025-05/30/2026) Visits Requested Visits Authorized Visits Completed Visits Scheduled 8 8 3 -- Details Referral ID: [id number] Authorization Status Reason: Covered Benefit Authorization Comments: -- Referred To: Raimundo Chirinso, PT at [facility], [facility] Referred By: -- Creation Date: 05/16/2025 Referral Reasons: -- Referral Order: -- Time In/Out: 1046/1135 Timed Treatment Minutes: Therapeutic activities 30 minutes Therapeutic Exercise 21 minutes Total Timed Code Treatment Minutes: 51 Untimed Treatment Minutes: None Total Treatment Minutes: 51 Medication Changes: none No future appointments. Pain is not an issue for which treatment is being performed. Subjective 07/12/2025 Missed last session due to illness Bladder - still leaking.completed but forgot logs Voiding more frequently due to drinking more. Started decreasing caffeine and having more water prior Down to 24oz coffee (from 48oz). 64 oz water per day Using clamp on work day. Emptying bladder q 1.5-2 hours - some leakage through this but able to usepad x 4-5 hours prior to changing No-clamp days - q .5-1 hour - soaking pad when he coughs / stands up / sneezes Kegels - trying to complete 1x / day Overnight - getting better. Unable to sleep on stomach due to concern for leakage. Last night - gotup 4x - avg 2-4x / night. Reducing fluid prior to bed - stopping around 8pm - bedtime 9/930-10pm Bowel diary - mostly BSS 4 - less straining - ~30% of the time straining and usually at work. Sees urologist tomorrow Pertinent previous info: 06/18/2025 Non-clamp day - 'horrible' - went through multiple pads. BMs - mostly BSS 3,4 (this morning BSS 6). Straining about 50% of the time. Has squatty potty - notusing. Multiple times per day. Reports hx to rectal spasms prior to prostate sx which were debilitating - hx x 20 years. If having issues - will notice straining with the first BM of the day. NoticesBSS 7 with dairy products. Water intake - 64oz at work and at home refills cup at home. Usually drinks up until bed time. Overnight - getting up 2-3-7x. Prior to sx - getting up 2-3x. Leaking through clamp. Will usually change pad 2x / day. With clamp - emptying ~q2 hours. Prior to coming to PT - was emptying clamp q hour and NOT leaking through Objective Voiding Diaries DATE 07/12/2025 Number of days recorded Frequency daytime Frequency nighttime Scheduled (instructed) void interval Min Void interval Max Void Interval Leaks (KAREEN, UUI) Daily fluid intake: Water oz Coffee oz Tea oz Soda (reg / diet) oz Total fluid per day Bowel diary: PERFECT: Power Endurance Reps Fast Twitch Elevation Co-Contraction (TA) Timing (cough) Treatment There-ex: Reviewed need to complete Kegels - enc use of Easy Kegel veronica PF strengthening: Kegel training/instruction - verbal cues, manual cues as need to facilitate normal contraction 10 sec hold / 10 sec rest x10, 6x / day Quick flicks - 2 sec hold, 4 sec rest, x10, 6x / day *PFM contractions should preferably be completed in a standing position PF relaxation to help reduce discomfort and irritation/pain of pelvic floor and lower abdomen Belly Breathing: x5-6 reps, 2+ x/day *additions in BOLD Provided manual and verbal cues as needed to facilitate correct performance of the intended exercise Pt was provided with exercises via the following route(s): [] Print [] Email [x] Text Access Code: [email or web address] URL: [email or web address] Date: 07/12/2025 Prepared by: Brandy Exercises - Supine Lower Trunk Rotation - 1-2 x daily - 2 sets - 10 reps - Supine Single Knee to Chest Stretch - 1-2 x daily - 2 reps - 30 hold - Sidelying Hip Abduction - 2 sets - 10 reps - Supine Bridge - 2 sets - 10 reps - Prone Alternating Arm and Leg Lifts - 2 sets - 10 reps - Quadruped Hip Extension Kicks - 2 sets - 10 reps (pt modified to forearms for comfort) - Standing Hip Extension - 2 sets - 10 reps - Standing Shoulder and Trunk Flexion at Table - 1-2 x daily - 2 reps - 20 hold - Squat with Chair Touch - 2 sets - 10 reps Manual therapy Instruction on self care - Therapeutic activities Voiding diary - complete for next session on clamp and non-clamp day. Voiding schedule - reviewed - after coffee - empty bladder (clamp) q hour up until 3 hours after finishing coffee. Beyond that, empty q 2 hours. Reviewed rationale. Non clamp days - q hour. Bladder irritants - reviewed. Try electrolyte drink without artificial sweetener (stevia ok); limitcoffee as able. Try to limit coffee - reviewed strategies for same. Try to limit total fluid to 100oz daily. Consider reducing coffee to 16 oz. Bowel diary - complete for next session Dietary - enc trying gluten free diet (already dairy free) Other - enc prone lying Assessment 07/12/2025 ~2.5 months post prostatectomy. Noting improvements in oral intake but still struggling with UI. Uses clamp. Working on use and void schedule. Moderate hip weakness. Plans to contact weight management center. Would likely benefit from dry needling for OAB and reduced urethral sphincter activation. On flomaxand oxybutynin Impression 06/05/2025 : Jimmy Flynn presents with post prostatectomy KAREEN with pre-existing OAB (on FLOMAX; oxybutynin XR); long standing ED; reduced LE mobility. Message to weight mgmt center per pt request. Goals Rehab potential: [x] good [] fair [] poor [] guarded Short Term Goals: (set for 2 weeks) Update/Status Patient will be independent with HEP upon D/C in order to promote long-term health and reduce risk for injury. [] Unmet [x] Progressing [] Met Pt to demo understanding of healthy bowel and bladder habits to promote normal ADL function, limiting pain. [] Unmet [] Progressing [x] Met Chcf Goals: (set for 12 weeks) Update/Status Pt to report nocturia to no > 1 episode per night to improve sleep habits and overall function [] Unmet [x] Progressing [] Met Pt to demonstrate 'normal' bladder habits to allow for normal functioning with ADLs and promote PF health - voiding 5-8x / day on average [x] Unmet [] Progressing [] Met Pt to report at least a 50% reduction in UI episodes to promote improved ADLs [x] Unmet [] Progressing [] Met PSFS will improve by at least 2 representing an increase in function. [x] Unmet [] Progressing [] Met Per discussion with patient, pt to report at least a 50% decrease in pad usage due to KAREEN. [x] Unmet [] Progressing [] Met Pt will report BSS 4 q1-2 days, no straining, representing an improvement in bowel and pelvic floormm function. [] Unmet [x] Progressing [] Met Plan [x]Continue per plan of care q 2-3 weeks [] Alter current plan (see comments) [] Plan of care initiated [] Hold pending MD visit [] Discharge Comment: check HEP compliance, logs. Consider DN Electronically signed by: Signed: Brandy Edmondson, PT Date: 07/12/2025 documented in this encounter Plan of Treatment Not on file documented as of this encounter Goals Goal Patient Goal Type Associated Problems Recent Progress Patient-Stated? Author Blood Pressure < 140/90 Blood Pressure 140/94(2023 3:55 PM EDT) No Irving Amaya MD BMI (Calculated) < 30 General 31.8(07/30/20 3:55 PM EDT) No Irving Amaya MD Eat better, exercise, reach an ideal body weight General No Nancy Fontaine MA Stay Tobacco Free Lifestyle No Nancy Fontaine MA HEMOGLOBIN A1C < 7.0 Result Component 6.7( 11:53 AM EDT) No Irving Amaya MD Alleviate symptoms of depression Care Plan Unipolar Depression No Keven Berg Psy D Alleviate symptoms of PTSD Care Plan PTSD No Keven Berg Psy D documented as of this encounter Visit Diagnoses Not on filedocumented in this encounter Additional Health Concerns Active Problems Noted Date Diagnosed Date Unipolar Depression 02/05/2023 PTSD 02/05/2023 documented as of this encounter Care Teams Director Medicaid Relationship Specialty Start Date End Date Irving Amaya MD [address] [place] [address] PCP - General Family Medicine 05/21/15 documented as of this encounter
--- OUTSIDE RECORDS SUMMARY | 2025-07-12 11:45 | XMS_ITS | Encounter Summary ---
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 [place] [id number] Malignant neoplasm of prostate (HCC) (Primary Dx) Discharge Disposition: Home or Self Care Social [...] Answer Date Recorded PHQ-2 Score 0 03/15/2019 [facility] - Occupational Stress Questionnaire Answer Date Recorded [...] place to sleep or slept in a penitentiary (including now)? 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 MAY TAKE ADDITIONAL DOSE AT BEDTIME 120 Tablet 3 dulaglutide (TRULICITY) 1.5 mg/0.5 mL SubQ Pen InjectorIndications :Type 2 diabetes mellitus without complication, unspecified whether long term care social worker insulin use,Type 2 diabetes mellitus without complication, without long-term current use of insulin ([facility]) Subcutaneous (Inject under the skin) 0.5 mL once a week. 6 mL 3 DULoxetine (CYMBALTA) 60 mg Oral Capsule, Delayed Release(E.C.)Indica tions:Anxiety TAKE 1 CAPSULE BY MOUTH EVERY DAY 90 Capsule 2 3 FARXIGA 10 mg Oral TabletIndications:T ype 2 diabetes mellitus without complication, unspecified whether long term care social worker insulin use,Type 2 diabetes mellitus without complication, without long-term current use of insulin ([facility]) TAKE 1 TABLET BY MOUTH EVERY DAY 90 Tablet 3 3 fluticasone (FLONASE) 50 mcg/actuation Nasl [place], SuspensionIndicatio ns:Acute bacterial sinusitis 2 Sprays by Nasal route daily. 1 Bottle 2 6 gabapentin (NEURONTIN) 300 mg Oral CapsuleIndications: Chronic bilateral low back pain without sciatica TAKE 3 CAPSULES BY MOUTH 3 TIMES DAILY. 270 Capsule 5 3 lisinopriL (PRINIVIL;ZESTRIL) 20 mg Oral Tablet tabletIndications:T ype 2 diabetes mellitus without complication, without long-term current use of insulin ([facility]) TAKE 1 TABLET BY MOUTH EVERY DAY 30 Tablet 4 metFORMIN (GLUCOPHAGE XR) 500 mg Oral ER 24 hr tabletIndications:T ype 2 diabetes mellitus without complication, without long-term current use of insulin ([facility]),Type 2 diabetes mellitus without complication, unspecified whether long term care social worker insulin use TAKE 2 TABLETS BY MOUTH DAILY (WITH BREAKFAST). NEEDS APPT 180 Tablet 3 methocarbamoL (ROBAXIN) 500 mg Oral TabletIndications:C hronic cervical pain,Radicular pain in right arm TAKE 1-2 TABLETS BY MOUTH NIGHTLY NEEDED FOR MUSCLE SPASMS. 30 Tablet 3 multivitamin (THERAGRAN) Oral TabletIndications:D iabetes type 2, controlled ([facility]) Take 1 Tab by mouth daily. Dkczq-5-ZER-EPA-Fis h Oil (FISH OIL) 1,000 mg (120 [...] or Self Care documented in this encounter Plan of Treatment [...] HEMOGLOBIN A1C < 7.0 Result Component 6.7( 3 11:53 AM EDT) No Irving Amaya MD Alleviate symptoms of depression Care Plan Unipolar Depression No Keven Berg Psy D Alleviate symptoms of PTSD Care Plan PTSD No Keven Berg Psy D documented as of this encounter Procedures Procedure Name Priority Date/Time Associated Diagnosis Comments PROSTATE SPECIFIC ANTIGEN (TUMOR MARKER) Callback 07/12/2025 12:18 PM EDT Malignant neoplasm of prostate (HCC) documented in this encounter Results * PROSTATE SPECIFIC ANTIGEN (TUMOR MARKER) (07/12/2025 12:18 PM EDT) Total Psa <0.04 <=4.00 ng/mL 07/12/2025 1:28 PM EDT [facility] Blood VENOUS BLOOD / Unknown Venipuncture / Unknown 07/12/2025 12:18 PM EDT 07/12/2025 12:18 PM EDT Narrative PREFERRED [employer] - 07/12/2025 1:28 PM EDT The [place] Elecsys total PSA electrochemiluminescence (ECLIA) immunoassay is used. Results obtained with different test methods or kits cannot be used interchangeably. The [place] method is approved for use as an aid in the detection of prostate cancer when used in conjunction with a digital rectal exam in individuals with a prostate aged 50 years or older. The assay is also indicated for the serial measurement of PSA to aid in the prognosis and management of prostate cancer patients. Elevated tPSA concentrations can only suggest the presence of prostate cancer until biopsy is performed. Levels may also be elevated in benign prostatic hyperplasia or inflammatory conditions of the prostate. Maru Mohr MD CHEMISTRY ORDERABLES Fi nal Result [facility] [address] [facility] [address] [place] [address] documented in this encounter Visit Diagnoses Diagnosis Malignant neoplasm of prostate (HCC)- Primary Malignant neoplasm of prostate documented in this encounter Additional Health Concerns Active Problems Noted Date Diagnosed Date Unipolar Depression 02/05/2023 PTSD 02/05/2023 documented as of this encounter Care Teams Monument Setter Helper Relationship Specialty Start Date End Date Irving Amaya MD [address] [place] [address] PCP - General Family Medicine 05/21/15 documented as of this encounter
--- OUTSIDE RECORDS SUMMARY | 2025-07-13 11:20 | XMS_ITS | Encounter Summary ---
Author Organization [facility] Address [address] [place] [id number] Care Team Providers Care Head Of Human Resources Name Role Phone Liliane Tabares APRN Primary Care Provider [phone] Nikki Wilson PA Unavailable [phone] Reason for Referral * Medications - Closed Specialty Diagnoses / Procedures Referred By Radha t Referred To Contact Diagnoses Erectile dysfunction after radical prostatectomy Erickson De La Cruz DO [address] [place] [address] Phone: tel: fax: Referral ID Status Reason Start Date Expiration Date Visits Re quested Visits Authorized [id number] Closed 1 1 Reason for Visit * Reason Comments Follow-up Encounter Details Date Type Department Care Team (Latest Contact Info) Description 07/13/2025 11:20 AM EDT Office Visit [facility] Multidisciplinary Oncology Clinic [address] [place] [address] Maru Mohr MD [address] [facility] [address] [place] [address] Malignant neoplasm of prostate (CMS/HCC) (Primary Dx); Stress incontinence; Erectile dysfunction after radical prostatectomy Social History Tobacco Use Types Packs/Day Years Used Date Smoking Tobacco: Former Cigarettes 1 15 Passive Smoke Exposure: Past Smokeless Tobacco: Current Snuff Alcohol Use Standard Drinks/Week Comments Yes 0 (1 standard drink = 0.6 oz pur e alcohol) social, once a month PHQ-2 Answer Date Recorded Patient Health Questionnaire-2 Score 2 07/16/2025 PHQ-9 Answer Date Recorded Patient Health Questionnaire-9 Score 13 07/16/2025 Sex and Gender Information Value Date Recorded Sex Assigned at Not on file Legal Sex Male 11:17 AM EDT Gender Identity Not on file Sexual Orientation Not on file documented as of this encounter Last Filed Vital Signs Vital Sign Reading Time Taken Comments Blood Pressure 141/84 07/13/2025 11:20 AM EDT Pulse 68 07/13/2025 11:20 AM EDT Temperature 36.7 C (98.1 F) 07/13/2025 11:20 AM EDT Respiratory Rate - - Oxygen Saturation 97% 07/13/2025 11:20 AM EDT Inhaled Oxygen Concentration - - Weight 113 kg (250 lb 3.6 oz) 07/13/2025 11:20 A M EDT Height 182.9 cm (6') 07/13/2025 11:20 AM EDT Body Mass Index 33.94 07/13/2025 11:20 AM EDT documented in this encounter Functional Status * Over the past 2 weeks, how often have you been bothered by any of the following problems? Question Answer Date of Assessment Author Little interest or pleasure in doing things Several days 07/16/2025 2:32 PM EDT Nina Rogers Feeling down, depressed, or hopeless Several days 07/16/2025 2:32 PM EDT Nina Rogers Patient Health Questionnaire -2 Score 2 07/16/2025 2:32 PM EDT Nina Rogers * Question Answer Date of Assessment Author Trouble falling or staying asleep, or sleeping too much Nearly every day 07/16/2025 2:32 PM EDT Nina Rogers Feeling tired or having little energy Nearly every day 07/16/2025 2:32 PM EDT Nina Rogers Poor appetite or overeating Nearly every day 2:32 PM EDT Nina Rogers Feeling bad about yourself - or that you are a failure or have let yourself or your family down Several days 07/16/2025 2:32 PM EDNina Fritz Trouble concentrating on things, such as reading the newspaper or watching television Several days 07/16/2025 2:32 PM CAITIET Nina Rogers Moving or speaking so slowly that other people could have noticed? Or the opposite - being so fidgety or restless that you have been moving around a lot more than usual. Not at all 07/16/2025 2:32 PM CAITIET Nina Rogers Thoughts that you would be better off or hurting yourself in some way Not at all 07/16/2025 2:32 PM EDT Nina Rogers Patient Health Questionnaire-9 Score 13 07/16/2025 2:32 PM CAITIET Nina Rogers * How difficult have these problems made it for you to do your work, take care of things at home, or get along with other people? Answer Date of Assessment Author Somewhat difficult 07/16/2025 2:32 PM EDT Nina Hughes documented as of this encounter Miscellaneous Notes * Progress Notes - Erickson De La Cruz DO - 07/13/2025 11:20 AM EDT Urology Note PROSTATIC ADENOCARCINOMA, DAHLIA SCORE 3 + 4 = 7 (GRADE GROUP 2, <5% PATTERN 4), pT2 Assessment and Plan: Jimmy Goff is a 59 y.o. male with an elevated PSA who underwent TRUS biopsy on 02/12/2025 revealing GG 1 adenocarcinoma of the prostate in 2 cores. He reports worsening an severe symptoms he associates with his prostate including urinary urgency that has failed medical management. He has intermittent prostatitis and symptoms are affecting his ability to be sexually active. He also has gastroparesis, constipation, and occasional diarrhea. He had a robotic radical prostatectomy on 05/02/2025 in the setting of prostate cancer and symptoms. Patient was unable to have have lymph node dissection dueto patient weight causing him to not tolerate insufflation well. Pathology showed T2N0 GG2, <5% p attern 4. PSA yesterday was undetectable. He is having bothersome leakage and has been wearing a meyer clamp 12 hours a day while at work. Also having a lot of leakage overnight. Not having erections. Plan: -Continue Pelvic floor PT - Discussed options for various clamps and condom catheter - Start daily tadalafil for penile rehab -Continue oxybutynin for leakage -OK to work without restrictions (Note given) -RTC in 6 months with PSA Chief Complaint: Prostate cancer History of Present Illness: Jimmy Goff is a 59 y.o. male from [facility] [address] who presents for evaluation of an did PSA since 2021. His PSA at that time was 4.48. The only other available PSA for review is from November of 2024 which was 5.46. TRUS biopsy on 02/12/2025 revealing GG 1 adenocarcinoma of the prostate in 2 cores. Patient had robotic radical prostatectomy on 05/02/2025 in the setting of prostate cancer and symptoms. Pathology showed T2N0 GG2, <5% pattern 4. PSA yesterday was undetectable. Today, the patient reports that he has been doing well since surgery. He continues to have very bothersome urinary leakage going through 5 or 6 pads per day if he is not using a Meyer clamp. He wears a Meyer clamp when he is at work for 12 hours at a time. He has had some superficial ulcerations on his penis from this which he manages with a topical barrier ointment. He continues to seepelvic floor physical therapy in his seeing slow improvement in his leakage. He is very bothered bynighttime leakage when he lays on his back or his stomach. I personally reviewed and updated the patient's past medical, surgical, social, and family histories Pertinent medical history includes T2DM, HTN, PTSD. Pertinent surgical history includes lap CCY, umbilical hernia repair using mesh. The patient denies a family history of malignancy. ECOG 0 Review of Systems: A complete 14 point ROS was performed and reviewed- please see HPI and scanned/signed intake form. Past Medical History[1] Surgical History[2] Family History[3] Social History Socioeconomic History Marital status: Spouse name: Not on file Number of children: Not on file Years of education: Not on file Highest education level: Not on file Occupational History Not on file Tobacco Use Smoking status: Former Current packs/day: 1.00 Average packs/day: 1 pack/day for 15.0 years (15.0 ttl pk-yrs) Types: Cigarettes Passive exposure: Past Smokeless tobacco: Current Types: Snuff Vaping Use Vaping status: Never Used Substance and Sexual Activity Alcohol use: Yes Comment: social, once a month Drug use: Never Sexual activity: Yes Partners: Female control/protection: None Other Topics Concern Not on file Social History Narrative Not on file Social Drivers of Health Financial Resource Strain: Medium Risk (06/14/2023) Received from [facility] Overall Financial Resource Strain (CARDIA) Difficulty of Paying Living Expenses: Somewhat hard Food Insecurity: Food Insecurity Present (06/14/2023) Received from [facility] Hunger Vital Sign Within the past 12 months, you worried that your food would run out before you got the money to buymore.: Sometimes true Within the past 12 months, the food you bought just didn't last and you didn't have money to get more.: Never true Transportation Needs: No Transportation Needs (06/14/2023) Received from [facility] PRAPARE - Transportation Lack of Transportation (Medical): No Lack of Transportation (Non-Medical): No Physical Activity: Unknown (06/14/2023) Received from [facility] Exercise Vital Sign On average, how many days per week do you engage in moderate to strenuous exercise (like a brisk walk)?: 4 days Minutes of Exercise per Session: Not on file Stress: Stress Concern Present (06/14/2023) Received from [facility] Citizen Of [place] of Occupational Health - Occupational Stress Questionnaire Feeling of Stress : Rather much Social Connections: Not on file Intimate Partner Violence: Not on file Housing Stability: High Risk (06/14/2023) Received from [facility] Housing Stability Vital Sign Unable to Pay for Housing in the Last Year: Yes Number of Places Lived in the Last Year: 1 Unstable Housing in the Last Year: No Current Medications[4] Allergies[5] Physical Exam: GEN: NAD EYES: EOMI Ears/Nose/Mouth/Throat: No obvious drainage per ears or nose CV: well perfused, pulse regular PULM: No audible wheezing or stridor, non-labored respirations ABD: soft, NT, ND, incisions well healed, not palpable hernia : No CVA tenderness, bladder not palpable MS: normal ROM of UEs Skin: No obvious rashes or open sores Neuro: CN 2-12 grossly intact Psych: Answered questions appropriately with normal affect Heme/Lymph/Immunologic: No obvious bruises or sites of spontaneous bleeding Records Review: I personally reviewed I personally reviewed outside institution and internal imaging studies, imaging reports, labs, and provider notes as noted below and in the assessment and plan. Lab Results Component Value Date PSA 5.46 (H) 12/19/2024 Final Diagnosis (no units) Date/Time Value 05/02/2025 0945 A. ADIPOSE TISSUE, OVERLYING PROSTATE, EXCISION: - NEGATIVE FOR CARCINOMA B. ANTERIOR BLADDER NECK, EXCISION: - NEGATIVE FOR CARCINOMA C. PROSTATE AND SEMINAL VESICLES, RADICAL PROSTATECTOMY: - PROSTATIC ADENOCARCINOMA, DAHLIA SCORE 3 + 4 = 7 (GRADE GROUP 2, <5% PATTERN 4), pT2 - THE TUMOR IS ORGAN CONFINED - MARGINS ARE NEGATIVE FOR CARCINOMA - NEGATIVE FOR LYMPHOVASCULAR INVASION - NEGATIVE FOR CRIBRIFORM GLANDS - SEE CHECKLIST FOR ADDITIONAL DETAILS Synoptic Checklist (no units) Date/Time Value 05/02/2025 0945 PROSTATE GLAND: Radical Prostatectomy PROSTATE GLAND: RADICAL PROSTATECTOMY - All Specimens 8th Edition - Protocol posted: 07/14/2023 SPECIMEN Procedure: Radical prostatectomy Prostate Size: Prostate Weight (Grams): 48.2 g Prostate Greatest Dimension (Centimeters): 4.5 cm Additional Prostate Dimension (Centimeters): 4.0 cm Additional Prostate Dimension (Centimeters): 3.9 cm TUMOR Histologic Type: Acinar adenocarcinoma, conventional (usual) Histologic Grade: Grade: Grade group 2 (Dahlia Score 3 + 4 = 7) Percentage of Pattern 4: Less than or equal to 5% Intraductal Carcinoma (IDC): Not identified Treatment Effect: No known presurgical therapy TUMOR QUANTITATION: Estimated Percentage of Prostate Involved by Tumor: 41 - 50% Extraprostatic Extension (EPE): Not identified Urinary Bladder Neck Invasion: Not identified Seminal Vesicle Invasion: Not identified Lymphatic and / or Vascular Invasion: Not Identified Perineural Invasion: Present MARGINS Margin Status: All margins negative for invasive carcinoma REGIONAL LYMPH NODES Regional Lymph Node Status: Not applicable (no regional lymph nodes submitted or found) pTNM CLASSIFICATION (AJCC 8th Edition) Reporting of pT, pN, and (when applicable) pM categories is based on information available to the pathologist at the time the report is issued. As per the AJCC (Chapter 1, 8th Ed.) it is the managingphysician's responsibility to establish the final pathologic stage based upon all pertinent information, including but potentially not limited to this pathology report. pT Category: pT2 pN Category: pN not assigned (no nodes submitted or found) [1] Past Medical History: Diagnosis Date Adverse effect of anesthesia patient states he woke up before he was extubated and has severe anxiety with this. Anxiety Arthritis Benign prostatic hyperplasia Dental disease chipped teeth Depression Diabetes mellitus (CMS/HCC) last ha1c was 7.1 per patient, glucose ranges 150 Dry mouth Elevated PSA Erectile dysfunction GERD (gastroesophageal reflux disease) Hyperlipidemia Hypertension Hypogonadism in male Overactive bladder Prostatitis PTSD (post-traumatic stress disorder) Sleep apnea wears cpap device Vitamin D deficiency [2] Past Surgical History: Procedure Laterality Date ANKLE SURGERY Right fracture CHOLECYSTECTOMY COLONOSCOPY HERNIA REPAIR TOTAL KNEE ARTHROPLASTY Left [3] Family History Problem Relation Name Age of Onset Cancer Father Samm Goff Heart disease Father Samm Goff Hypertension Father Samm Goff [4] Current Outpatient Medications Medication Sig Dispense Refill amLODIPine (Norvasc) 5 MG tablet Take 1 tablet by mouth daily. ARIPiprazole (Abilify) 10 MG tablet Take 1 tablet by mouth daily. atorvastatin (Lipitor) 20 MG tablet Take 1 tablet by mouth daily. busPIRone (Buspar) 10 MG tablet Take 1 tablet by mouth 3 times a day as needed. Continuous Glucose Certified First Assistant (Dexcom G7 Certified First Assistant) device USE DIRECTED TO TEST BLOOD GLUCOSE LEVEL desvenlafaxine (Pristiq) 100 MG 24 hr tablet Take 1 tablet by mouth daily. Farxiga 10 MG tablet Take 1 tablet by mouth daily. fluticasone (Flonase) 50 MCG/ACT nasal spray 1 spray daily. prn glimepiride (Amaryl) 2 MG tablet Take 1 tablet by mouth daily before breakfast. GNP Vitamin D Super Strength 125 MCG (5000 UT) tablet Take 1 tablet by mouth daily. hydrOXYzine pamoate (Vistaril) 25 MG capsule TAKE 1 TO 2 CAPSULE(S) BY MOUTH EVERY DAY AT BEDTIME NEEDED FOR SLEEP lisinopril 20 MG tablet Take 1 tablet by mouth daily. meloxicam (Mobic) 15 MG tablet Take 1 tablet by mouth daily. metFORMIN XR (Glucophage-XR) 500 MG 24 hr tablet Take 2 tablets by mouth daily. methocarbamol (Robaxin) 500 MG tablet TAKE 1 TO 2 TABLETS AT BEDTIME EVERY NIGHT Multiple Vitamin (Multi-Vitamin) tablet Take 1 tablet by mouth 1 time each day. mupirocin (Bactroban) 2 % ointment prn omeprazole (PriLOSEC) [address] capsule Take 1 capsule by mouth daily. ondansetron ODT (Zofran-ODT) 4 MG disintegrating tablet prn oxybutynin XL (Ditropan-XL) 10 MG 24 hr tablet Take 1 tablet by mouth daily. pantoprazole (Protonix) 40 MG EC tablet Take 1 tablet by mouth daily. prazosin (Minipress) 1 MG capsule TAKE ONE CAPSULE BY MOUTH AT BEDTIME NIGHTLY prazosin (Minipress) 2 MG capsule Take 1 capsule by mouth nightly. traZODone (Desyrel) 50 MG tablet TAKE 1 TO 1.5 TABLET BY MOUTH EVERY DAY triamcinolone (Kenalog) 0.1 % oral paste 2 times a day. Continuous Glucose Sensor (Panizon G7 Sensor) [facility] [place] USE DIRECTED TO TEST BLOOD GLUCOSE LEVEL CHANGE SENSOR EVERY 10 DAYS oxybutynin XL (Ditropan-XL) 10 MG 24 hr tablet Take 1 tablet by mouth daily. Do not crush, chew, orsplit. (Patient not taking: Reported on 07/13/2025) 30 tablet 2 tamsulosin (Flomax) 0.4 MG 24 hr capsule Take 1 capsule by mouth daily. (Patient not taking: Reported on 07/13/2025) No current facility-administered medications for this visit. [5] Allergies Allergen Reactions Bupropion Other - please document in the comment field Severe agitation, psychosis Colesevelam Hives itching Oxycodone-Acetaminophen Hives, Itching, Palpitations and Rash itching Penicillins Anaphylaxis and Hives Aspirin Nausea Xiidra [Lifitegrast] Other - please document in the comment field Burning of the eyes Cosigned by Maru Mohr MD at 07/16/2025 4:52 PM EDT Associated attestation - Maru Mohr MD - 07/16/2025 4:52 PM EDT I saw and evaluated the patient with the resident/fellow. I discussed the case with the resident/fellow and agree with the findings and plan as documented. documented in this encounter Plan of Treatment Upcoming Encounters Date Type Department Care Team (Late st Contact Info) Description 10/15/2025 10:00 AM EST Office Visit [facility] [address] [place] [address] Maru Mohr MD [address] [facility] [address] [place] [address] documented as of this encounter Visit Diagnoses Diagnosis Malignant neoplasm of prostate (CMS/HCC)- Primary Malignant neoplasm of prostate Stress incontinence Female stress incontinence Erectile dysfunction after radical prostatectomy documented in this encounter Additional Health Concerns Assessment Noted Time PHQ-9 Depression Total Score: 18 025 1:53 PM EST A fall risk assessment has been complete d for the patient 07/13/2025 11:23 AM EDT A Body Mass Index follow-up plan has been documented for the patient 05/28/2025 6:50 PM EDT documented as of this encounter Care Teams Head Of Human Resources Relationship Specialty Start Date End Date Liliane Tabares APRN [address] [place] [address] PCP - General 12/19/24 Nikki Wilson PA [address] [place] [address] Physician [employer] [facility] 12/19/24 documented as of this encounter
--- OUTSIDE RECORDS SUMMARY | 2025-07-16 14:00 | XMS_ITS | Encounter Summary ---
Author Organization [facility] Address [address] [place] [address] Care Team Providers Care Terrazzo Journeyman Name Role Phone Liliane Tabares APRN Primary Care Provider [phone] Nikki Wilson Unavailable Reason for Visit * Reason Comments Follow-up Malignant neoplasm o f prostate Encounter Details Date Type Department Care Team (Latest Contact Info) Description 07/16/2025 2:00 PM EDT Office Visit [facility] Multidisciplinary Oncology Clinic [address] [place] [address] Mary Lou Aparicio PA [address] [place] [address] Cellulitis, unspecified cellulitis site (Primary Dx); Malignant neoplasm of prostate (CMS/HCC); Stress incontinence; Erectile dysfunction after radical prostatectomy [...] Sign Reading Time Taken Comments Blood Pressure 145/85 07/16/2025 2:26 PM EDT Pulse 90 07/16/2025 2:26 PM EDT Temperature 36.8 C (98.3 F) 07/16/2025 2:26 PM EDT Respiratory Rate 16 07/16/2025 2:26 PM EDT Oxygen Saturation 95% 07/16/2025 2:26 PM EDT Inhaled Oxygen Concentration - - Weight 112 kg (246 lb 14.6 oz) 07/16/2025 2:26 P M EDT Height 182.9 cm (6' 0.01 ) 07/16/2025 2:26 PM ED T Body Mass Index 33.48 07/16/2025 2:26 PM EDT documented in this encounter Functional Status [...] family down Several days 07/16/2025 2:32 PM EDT Nina Rogers Trouble concentrating on things, such as reading the newspaper or watching television Several days 07/16/2025 2:32 PM EDT Nina Rogers Moving or speaking so slowly that other people could have noticed? Or the opposite - being so fidgety or restless that you have been moving around a lot more than usual. Not at all 07/16/2025 2:32 PM EDT Nina Rgoers Thoughts that you would be better off or hurting yourself in some way Not at all 07/16/2025 2:32 PM EDT Nina Rogers Patient Health Questionnaire-9 Score 13 07/16/2025 2:32 PM EDT Nina Rogers * How difficult have these problems made it for you to do your work, take care of things at home, or get along with other people? Answer Date of Assessment Author Somewhat difficult 07/16/2025 2:32 PM EDT Nina Hughes documented as of this encounter Miscellaneous Notes * Progress Notes - Mary Lou Aparicio PA - 07/16/2025 2:00 PM EDT Urology Followup Date of Service: 07/16/2025 Jimmy Goff is a 59 y.o. male, referred for prostate CA, penile swelling Subjective HPI: PMH significant for prostate CA, KAREEN post prostatectomy, type 2 DM, gastroparesis, PTSD. He had prior umbilical hernia repaired with mesh. Jimmy Goff is a 59 y.o. male from [facility] [id number] who presents for evaluation of an did [...] a family history of malignancy. ECOG 0 07/16/2025 - Pt called urgently today, noted a sore on the underside of his penis and some edema of the shaft skin yesterday. Area is very sore. He does wear a clamp for UI, but usually this sits behind this sore. No F/C, no voiding complaints, no GH. He is circumcised, denies any redundant foreskin that usually sits over glans. He has been using bacitracin cream at home. Tobacco Use: High Risk (05/11/2025) Patient History Smoking Tobacco Use: Former Smokeless Tobacco Use: Current Passive Exposure: Past Past Medical History[1] Surgical History[2] Objective Visit Vitals BP (!) 145/85 (BP Location: Right arm, Patient Position: Sitting, BP Cuff Size: Adult) Pulse 90 Temp 36.8 ??C (98.3 ??F) (Oral) Resp 16 Ht 1.829 m (6' 0.01 ) Wt 112 kg (246 lb 14.6 oz) SpO2 95% BMI 33.48 kg/m?? Smoking Status Former BSA 2.39 m?? Physical Exam Vitals reviewed. Constitutional: General: He is not in acute distress. Appearance: Normal appearance. He is obese. HENT: Head: Normocephalic and atraumatic. Eyes: Conjunctiva/sclera: Conjunctivae normal. Cardiovascular: Rate and Rhythm: Normal rate. Pulmonary: Effort: Pulmonary effort is normal. Abdominal: General: There is no distension. Tenderness: There is no abdominal tenderness. Genitourinary: Comments: Penis is circumcised, does have a bit of redundant foreskin but not enough to cover the glans, not paraphimosis. He does have some dependent edema along the underside of glans/redundant skin and along distal shaft on the right. Along ventral aspect of shaft in midline, there is a small superficial wound with somewhat macerated appearance to the top layer of skin. No redness, no discharge, no ulceration. There is no fluctuance to the skin/glans, no crepitus Musculoskeletal: General: Normal range of motion. Neurological: General: No focal deficit present. Mental Status: He is alert and oriented to person, place, and time. Psychiatric: Mood and Affect: Mood normal. Behavior: Behavior normal. Thought Content: Thought content normal. Judgment: Judgment normal. ECOG 0: Fully active, able to carry on all pre-disease performance without restriction Prior Data Review: PSA Log: Date PSA 2021 4.48 12/19/2024 5.46 05/02/2025 RALP (Onur) <0.04 Additional Labs: 05/03/2025 - WBC 10.17, hgb 13.5, creat 0.95, glucose 196 Imaging: CT A/P with (06/13/2023) - no renal stones/hydro/masses. Bilateral renal cysts noted, normal uretersand bladder. Normal pelvic organs, no LAD. PVR (12/19/2024) - 199mL Assessment/Plan Penile edema - Noted penile edema and pain starting yesterday, also with a small sore on the underside of penis. He does use a Meyer clamp but this doesn't sit in the area of the lesion. He has been using bacitracin ointment, denies any voiding issues, no F/C. On exam, does have a small wound measuring around 8mm or so in diameter on underside of penis along midline of distal shaft. He doeshave what appears to be some dependent edema of some redundant foreskin as well, no yaritza paraphimosis as this skin typically does not cover glans per pt. - Recommended he limit Meyer clamp usage until this heals - Can continue bacitracin ointment, will add bactrim BID x10 days as well - Recommended scrotal support, penile elevation while lying down at home to aid in edema resolution - repeat exam in 2 weeks, sooner or to ED for worsening pain/swelling/fever/etc Prostate CA - Baseline PSA in 2021 was 4.48. He had further PSA (11/2024) that was 5.46. 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 He underwent RALP (05/02/2025). Pathology showed T2N0 GG2, <5% pattern 4. His first postop PSA (07/12/2025) was undetectable - Continue PSA monitoring, next in 09/2025 KAREEN - Marked KAREEN following prostatectomy, currently using Meyer clamp - Have asked him to limit Meyer clamp usage as much as possible given penile wound. - Continue pelvic floor PT - Oxybutynin was started 07/13/2025 for lingering UI as well, can continue ED - Has had some ED issues since RALP, daily tadalafil 5mg started 06/2025 RAVINDRA MustafaC [1] Past Medical History: Diagnosis Date Adverse [...] COLONOSCOPY HERNIA REPAIR TOTAL KNEE ARTHROPLASTY Left documented in this encounter Plan of Treatment Upcoming Encounters Date Type Department Care Team (Late st Contact Info) Description 10/15/2025 10:00 AM EST Office Visit [facility] Multidisciplinary Oncology Clinic [address] [place] [address] Maru Mohr MD [address] [facility] [address] [place] [address] documented as of this encounter Visit Diagnoses Diagnosis Cellulitis, unspecified cellulitis site- Primary Malignant neoplasm of prostate (CMS/HCC) Malignant neoplasm of prostate Stress incontinence Female stress incontinence Erectile dysfunction after radical prostatectomy documented in this encounter Additional Health Concerns Assessment Noted Time PHQ-9 Depression Total Score: 13 025 2:32 PM EDT A fall risk assessment has been complete d for the patient 07/16/2025 2:34 PM EDT A Body Mass Index follow-up plan has been documented for the patient 05/28/2025 6:50 PM EDT documented as of this encounter Care Teams Terrazzo Journeyman Relationship Specialty Start Date End Date Liliane Tabares APRN [address] [place] [address] PCP - General 12/19/24 Nikki Wilson PA [address] [facility] [address] [place] [address] Physician Maintenance Shop Laborer Urology 12/19/24 documented as of this encounter
--- OUTSIDE RECORDS SUMMARY | 2025-08-13 11:20 | XMS_ITS | Encounter Summary ---
Author Organization [facility] Address [address] [place] [address] Care Team Providers Care Cone Runner Name Role Phone Liliane Tabares APRN Primary Care Provider [phone] Nikki Wilson Unavailable [phone] Reason for Referral * Consultation (Urgent) - Authorized Specialty Diagnoses / Procedures Referred By Contac t Referred To Contact Urology Diagnoses Stress incontinence Mary Lou Aparicio PA [address] [address] Phone: tel: fax: Referral ID Status Reason Start Date Expiration Date Visits Requested Visits Authorized [id number] Authorized Specialty Services Required 02/12/2027 1 1 Scheduling Instructions Dx: urinary incontinence following RALP, interested in AUS Please refer to Dr. Binh Palacio at [facility] Thanks! Reason for Visit * Reason Comments Follow-up Encounter Details Date Type Department Care Team (Latest Contact Info) Description 08/13/2025 11:20 AM EDT Office Visit [facility] Multidisciplinary Oncology Clinic [address] [place] [address] Mary Lou Aparicio PA [address] [address] Stress incontinence (Primary Dx); Malignant neoplasm of prostate (CMS/HCC) Social History Tobacco Use Types Packs/Day Years Used Date Smoking Tobacco: Former Cigarettes 1 15 Passive Smoke Exposure: Past Smokeless Tobacco: Current Snuff Alcohol Use Standard Drinks/Week Comments Yes 0 (1 standard drink = 0.6 oz pur e alcohol) social, once a month PHQ-2 Answer Date Recorded Patient Health Questionnaire-2 Score 2 07/16/2025 PHQ-9 Answer Date Recorded Patient Health Questionnaire-9 Score 13 07/16/2025 PHQ-2A Answer Date Recorded Depression Risk 0 08/13/2025 PHQ-9A Answer Date Recorded Depression Risk Score 0 08/13/2025 Sex and Gender Information Value Date Recorded Sex Assigned at Not on file Legal Sex Male 11:17 AM EDT Gender Identity Not on file Sexual Orientation Not on file documented as of this encounter Last Filed Vital Signs Vital Sign Reading Time Taken Comments Blood Pressure 143/82 08/13/2025 12:12 PM EDT Pulse 77 08/13/2025 12:12 PM EDT Temperature 36.6 C (97.8 F) 08/13/2025 12:12 PM EDT Respiratory Rate 16 08/13/2025 12:12 PM EDT Oxygen Saturation 97% 08/13/2025 12:12 PM EDT Inhaled Oxygen Concentration - - Weight 110 kg (243 lb 9.7 oz) 08/13/2025 12:12 P M EDT Height 182.9 cm (6') 08/13/2025 12:12 PM EDT Body Mass Index 33.04 08/13/2025 12:12 PM EDT documented in this encounter Functional Status * Calculated C-SSRS Risk Score (Lifetime/Recent) Answer Date of Assessment Author No Risk Indicated 08/13/2025 12:07 PM EDT Aaliyah Liz * Question Answer Date of Assessment Author 1. Wish to be (Past 1 Month) No 025 12:07 PM EDT Aaliyah Liz 2. Non-Specific Active Suici namrata Thoughts (Past 1 Month) No 08/13/2025 12:07 PM EDT Emma Liz 6. Suicidal Behavior (Lifetime) No 12:07 PM EDT Aaliyah Liz documented as of this encounter Miscellaneous Notes * Progress Notes - Mary Lou Aparicio PA - 08/13/2025 11:20 AM EDT Urology Followup Date of Service: 08/13/2025 Jimmy Goff is a 60 y.o. male, referred for prostate CA, penile swelling Subjective HPI: PMH significant for prostate CA, KAREEN post prostatectomy, type 2 DM, gastroparesis, PTSD. He had prior umbilical hernia repaired with mesh. Jimmy Goff is a 59 y.o. male from [facility] [phone] who presents for evaluation of an did [...] <5% pattern 4. PSA yesterday was undetectable. 07/13/2025 - the patient reports that he has been doing well since surgery. He continues to have very bothersome urinary leakage going through 5 or 6 pads per day if he is not using a Meyer clamp. He wears a Meyer clamp when he is at work for 12 hours at a time. He has had some superficialulcerations on his penis from this which he manages with a topical barrier ointment. He continues to see pelvic floor physical therapy in his seeing slow improvement in his leakage. He is very bothered by nighttime leakage when he lays on his back [...] has been using bacitracin cream at home. 08/13/2025 - He was given bactrim + bacitracin ointment at last visit for penile lesion. He says that penile ulcer has resolved, still with a slight nodule in the skin but pain/irritation has resolved. He is bothered by ongoing large volume UI, despite pelvic floor PT, oxybutynin, penile clamp and is interested in pursuing Tobacco Use: High Risk (05/11/2025) Patient History Smoking Tobacco Use: Former Smokeless Tobacco Use: Current Passive Exposure: Past Past Medical History[1] Surgical History[2] Objective Visit Vitals BP (!) 143/82 Pulse 77 Temp 36.6 ??C (97.8 ??F) (Oral) Resp 16 Ht 1.829 m (6') Wt 110 kg (243 lb 9.7 oz) SpO2 97% BMI 33.04 kg/m?? Smoking Status Former BSA 2.37 m?? Physical Exam Vitals reviewed. Constitutional: Appearance: Normal appearance. HENT: Head: Normocephalic and atraumatic. Eyes: Conjunctiva/sclera: Conjunctivae normal. Cardiovascular: Rate and Rhythm: Normal rate. Pulmonary: Effort: Pulmonary effort is normal. Abdominal: Palpations: Abdomen is soft. Genitourinary: Comments: Circumcised; he does have some mild residual edema of redundant foreskin along dependent portion of distal shaft. Prior ulceration in midline of shaft on underside of penis has resolved, just some mid erythema remaining, non-tender, no discharge Musculoskeletal: General: Normal range of motion. Neurological: Mental Status: He is alert. Prior Data Review: PSA Log: Date PSA 2021 4.48 12/19/2024 5.46 05/02/2025 RALP (Onur) 07/12/2025 <0.04 Additional Labs: 05/03/2025 - WBC 10.17, hgb 13.5, creat 0.95, glucose 196 Imaging: CT A/P with (06/13/2023) - no renal stones/hydro/masses. Bilateral renal cysts noted, normal uretersand bladder. Normal pelvic organs, no LAD. PVR (12/19/2024) - 199mL Assessment/Plan Penile edema - Noted penile edema and pain starting 07/15/2025, also with a small sore on the underside of penis. He does use a Meyer clamp but this doesn't sit in the area of the lesion. On exam(07/16), noted to have a small wound measuring around 8mm or so in diameter on underside of penis along midline of distal shaft. He does have what appears to be some dependent edema of some redundant foreskin as well, no yaritza paraphimosis. He was given Bactrim and bacitracin ointment and this ulcerated lesion has resolved. - Recommended he try to place Meyer clamp in alternating areas to reduce skin breakdown risk - Scrotal/penile elevation Prostate CA - Baseline PSA in 2021 [...] Marked KAREEN following prostatectomy, currently using Meyer clamp, oxybutynin and doing pelvic PT. He is not seeing any improvement in KAREEN at this time and is interested in AUS - Will refer to [facility] (Dr. Binh Palacio) for AUS consult - Continue pelvic floor PT - Oxybutynin was started 07/13/2025 for lingering UI as well, can continue ED - Has had some ED issues since RALP, daily tadalafil 5mg started 06/2025 Mary Lou Aparicio PA-C [1] Past Medical History: Diagnosis Date Adverse [...] [facility] Multidisciplinary Oncology Clinic [address] [place] [address] Maru Mohr MD [address] [address] Scheduled Referrals Name Type Priority Associated Diagnoses Orde r Schedule Ambulatory referral to Urology Outpatient Referral Routine Stress incontinence Expected: 08/27/2025 (Approximate), Expires: 02/14/2027 documented as of this encounter Visit Diagnoses Diagnosis Stress incontinence- Primary Female stress incontinence Malignant neoplasm of prostate (CMS/HCC) Malignant neoplasm of prostate documented in this encounter Additional Health Concerns Assessment Noted Time PHQ-9 Depression Total Score: 13 025 2:32 PM EDT A fall risk assessment has been complete d for the patient 08/13/2025 12:09 PM EDT A Body Mass Index follow-up plan has been documented for the patient 05/28/2025 6:50 PM EDT documented as of this encounter Care Teams Cone Runner Relationship Specialty Start Date End Date Liliane Tabares APRN [facility] [place] [address] PCP - General 12/19/24 Nikki Wilson PA [id number] [place] [address] Physician Systems Security Analyst Urology 12/19/24 documented as of this encounter
[2025-08-22 19:37] LABS: Alanine Aminotransferase 39 U/L (12-78); Albumin Level 3.4 g/dl (3.5-5.0); Albumin/Globulin Ratio 0.9 (1.1-1.8); Alkaline Phosphatase 115 U/L (38-126); Anion Gap 12.1 mEq/L (5-15); Aspartate Amino Transferase 31 U/L (17-59); Bilirubin,Total 0.7 mg/dl (0.2-1.3); Blood Urea Nitrogen 20 mg/dl (9-20); Calcium 8.8 mg/dl (8.4-10.2); Carbon Dioxide 27 mmol/L (22.0-30.0); Chloride 102 mmol/L (98-107); Cholesterol 146 mg/dl (140-200); Creatinine,Serum 0.90 mg/dl (0.66-1.25); Estimated Glomerular Filt Rate 86 ml/min (>60); GFR (African American) 105 ML/MIN (>60); Globulin 3.7 g/dL (1.3-3.2); Glucose 148 mg/dl (74-100); HDL Cholesterol 36 mg/dl (40-60); Potassium 4.1 mmoL/L (3.5-5.1); Sodium 137 mmol/L (136-145); Total Protein,Serum 7.1 g/dl (6.3-8.2); Triglycerides 148 mg/dl (30-150)
[2025-08-22 20:25] LABS: Hemoglobin A1C 6.8 % (4.0-6.0)
--- OUTSIDE RECORDS SUMMARY | 2025-08-23 13:50 | XMS_ITS | Encounter Summary ---
Author Organization [place] [address] Care Team Providers Care Program Proposals Coordinator Name Role Phone Irving Amaya MD Primary Care Provider Encounter Details Date Type Department Care Team (Late st Contact Info) Description 01/03/2016 Orders Only SEP Gastro CV [address] [facility] [address] [place] [address] Mayra Arndt MD Social History Tobacco Use Types Packs/Day Years Used Date Smoking Tobacco: Former Cigarettes Q uit: 10/25/2001 Smokeless Tobacco: Current Comments:dip Alcohol Use Standard Drinks/Week Comments Yes 0 (1 standard drink = 0.6 oz pur e alcohol) occ Sex and Gender Information Value Date Recorded Sex Assigned at Not on file Legal Sex Male 4:13 PM EST Gender Identity Not on file Sexual Orientation Not on file documented as of this encounter Plan of Treatment Not on file documented as of this encounter Procedures Procedure Name Priority Date/Time Associated Diagnosis Comments GMED EGD Routine 01/03/2016 9:30 AM EST documented in this encounter Results * ED EGD (01/03/2016 9:30 AM EST) 01/03/2016 9:30 AM EST Impressions [facility] - 01/03/2016 12:00 PM EST Ulcer in the distal duodenal bulb. Erythema and erosions in the duodenal bulb compatible with duodenitis. Erosions (few) and erythema in the antrum and pre-pyloric region compatible with erosive gastritis. (Biopsy). Normal mucosa in the whole esophagus. (Biopsy). Normal mucosa in the second part of the duodenum. (Biopsy). Plan: Follow-up biopsy results. Discontinue NSAIDs. Continue current medication for acid suppression 30 minutes before a meal. Obtain stool studies as previously ordered. Continue medications as discussed in office visit. Follow-up office visit in 2 months. This section is an excerpt of the full report. us Mayra Arndt MD GI PROCEDURE ORDERABLES Final Result Performing Organization Address City/State/[facility] Co de Phone Number [facility] [address] [place] [address] documented in this encounter Visit Diagnoses Not on filedocumented in this encounter Care Teams Program Proposals Coordinator Relationship Specialty Start Date End Date Irving Amaya MD [address] [place] [phone] PCP - General Family Medicine 05/21/15 documented as of this encounter
--- OUTSIDE RECORDS SUMMARY | 2025-08-23 13:50 | XMS_ITS | Clinical Summary ---
Author Organization [facility] Address [address] [place] [address] Care Team Providers Care Undergraduate Internship Name Role Phone Liliane Tabares APRN Primary Care Provider Nikki Wilson Unavailable [phone] Allergies Active Allergy Reactions Criticality Noted Date Comments Aspirin Nausea Low 05/21/2015 Bupropion Other - please document in the comment field High 11/18/2018 Severe agitation, psychosis Colesevelam Hives High 11/18/2018 itching Oxycodone-Acetaminophe n Hives,Itching,Palpit ations,Rash High 01/10/2014 itching Penicillins Anaphylaxis,Hives High 01/10/2014 Lifitegrast Other - please document in the comment field Low 04/18/2025 Burning of the eyes Medications amLODIPine (Norvasc) 5 MG tablet Take 1 tablet by mouth daily. Active ARIPiprazole (Abilify) 10 MG tablet Take 1 tablet by mouth daily. 09/26/20 24 Active atorvastatin (Lipitor) 20 MG tablet Take 1 tablet by mouth daily. Active busPIRone (Buspar) 10 MG tablet Take 1 tablet by mouth 3 times a day as needed. Active GNP Vitamin D Super Strength 125 MCG (5000 UT) tablet Take 1 tablet by mouth daily. 09/12/20 24 Active Continuous Glucose Malt House Operator (Dexcom G7 Malt House Operator) device USE DIRECTED TO TEST BLOOD GLUCOSE LEVEL 06/14/20 24 Active Continuous Glucose Sensor (Dexcom G7 Sensor) misc USE DIRECTED TO TEST BLOOD GLUCOSE LEVEL CHANGE SENSOR EVERY 10 DAYS 11/21/19 25 Active Farxiga 10 MG tablet Take 1 tablet by mouth daily. 11/12/19 25 Active desvenlafaxine (Pristiq) 100 MG 24 hr tablet Take 1 tablet by mouth daily. 09/26/20 24 Active fluticasone (Flonase) 50 MCG/ACT nasal spray 1 spray daily. prn 06/14/20 24 Active glimepiride (Amaryl) 2 MG tablet Take 1 tablet by mouth daily before breakfast. 12/02/19 25 Active hydrOXYzine pamoate (Vistaril) 25 MG capsule TAKE 1 TO 2 CAPSULE(S) BY MOUTH EVERY DAY AT BEDTIME NEEDED FOR SLEEP Active lisinopril 20 MG tablet Take 1 tablet by mouth daily. Active meloxicam (Mobic) 15 MG tablet Take 1 tablet by mouth daily. Active metFORMIN XR (Glucophage-XR) 500 MG 24 hr tablet Take 2 tablets by mouth daily. Active methocarbamol (Robaxin) 500 MG tablet TAKE 1 TO 2 TABLETS AT BEDTIME EVERY NIGHT Active Multiple Vitamin (Multi-Vitamin) tablet Take 1 tablet by mouth 1 time each day. Active mupirocin (Bactroban) 2 % ointment prn 04/05/20 24 Active omeprazole (PriLOSEC) [address] capsule Take 1 capsule by mouth daily. Active ondansetron ODT (Zofran-ODT) 4 MG disintegrating tablet prn Active pantoprazole (Protonix) 40 MG EC tablet Take 1 tablet by mouth daily. Active prazosin (Minipress) 1 MG capsule TAKE ONE CAPSULE BY MOUTH AT BEDTIME NIGHTLY 01/03/20 25 Active prazosin (Minipress) 2 MG capsule Take 1 capsule by mouth nightly. Active oxybutynin XL (Ditropan-XL) 10 MG 24 hr tablet Take 1 tablet by mouth daily. Do not crush, chew, or split. 30 tablet 2 05/11/20 25 Active Additional Information Patient not taking.Reported on 08/13/2025 tadalafil (Cialis) 5 MG tabletIndications: Erectile dysfunction after radical prostatectomy Take 1 tablet by mouth daily as needed for erectile dysfunction. 30 tablet 11 07/13/20 25 026 Active oxybutynin XL (Ditropan-XL) 10 MG 24 hr tablet Take 1 tablet by mouth daily. 30 tablet 3 07/13/20 25 026 Active sulfamethoxazole-t rimethoprim (Bactrim DS) 800-160 MG tabletIndications: Cellulitis, unspecified cellulitis site Take 1 tablet by mouth 2 times a day. 20 tablet 07/16/20 Active Additional Information Patient not taking.Reported on 08/13/2025 modafinil (Provigil) 100 MG tablet 08/11/20 Active Active Problems Problem Noted Date Diagnosed Date Tobacco use disorder 07/13/2025 Second hand smoke exposure 07/13/2025 Malignant neoplasm of prostate 05/02/2025 Encounters Date Type Department Care Team Description 08/13/2025 11:20 AM EDT Office Visit [facility] [address] [place] [phone] Mary Lou Aparicio PA Stress incontinence (Primary Dx); Malignant neoplasm of prostate (CMS/HCC) 08/13/2025 Travel 07/30/[address] [facility] [address] [place] [phone] Mary Lou Aparicio PA 07/16/2025 2:00 PM EDT Office Visit [facility] [address] [place] [phone] Mary Lou Aparicio PA Cellulitis, unspecified cellulitis site (Primary Dx); Malignant neoplasm of prostate (CMS/HCC); Stress incontinence; Erectile dysfunction after radical prostatectomy 07/16/2025 Travel 07/13/2025 11:20 AM EDT Office Visit [facility] [address] [place] [phone] Mrau Mohr MD Malignant neoplasm of prostate (CMS/HCC) (Primary Dx); Stress incontinence; Erectile dysfunction after radical prostatectomy 07/13/2025 Travel 07/12/2025 Travel from Last 3 Months Family History Medical History Relation Name Comments Cancer Father Samm Goff Heart disease Father Samm Goff Hypertension Father Samm Goff Relation Name Status Comments Father Samm Goff Social History Tobacco Use Types Packs/Day Years Used Date Smoking Tobacco: Former Cigarettes 1 15 Passive Smoke Exposure: Past Smokeless Tobacco: Current Snuff Tobacco Cessation:Ready to Q uit: Not Asked; Counseling Given: Not Answered Alcohol Use Standard Drinks/Week Comments Yes 0 [...] on file Sexual Orientation Not on file Last Filed Vital Signs Vital Sign Reading [...] Mass Index 33.04 08/13/2025 12:12 PM EDT Plan of Treatment Upcoming Encounters Date Type Department Care Team (Late st Contact Info) Description 10/15/2025 10:00 AM EST Office Visit [facility] [address] [place] [address] Maru Mohr MD [phone] [place] [address] Health Maintenance Due Date Last Done Comments [facility]-Diabetes: Hemoglobin A1C 1966 [facility]-HIV Screening 1966 [facility]-Hepatitis C Screening 1966 [facility]-/Child/Adol SDOH Screenings 1966 Diabetes: Dental Exam 1976 [facility]- SDOH Screenings 1984 [facility]-Adult SDOH Screenings 1984 [facility]-Zoster Vaccines (1 of 2) 1985 CT Colonography 2011 Colonoscopy 2011 FIT-DNA 2011 FIT 2011 FOBT 2011 Sigmoidoscopy 2011 [facility]-Colorectal Cancer Screening 2011 [id number] Vaccine ( season) 2025 09/08/2021, 12/16/2020, 11/14/2020 [facility]-Influenza Vaccine (#1) 06/25/202507/25, 11/29/2023, 07/31/2021, Additional history exists [facility]-Depression Screening 08/13/2026 025, 08/13/2025, 07/16/2025, Additional history exists [facility]-DTaP,Tdap,and Td Vaccines (2 - Td or Tdap) 07/31/2031 07/31/2021 [facility]-Hepatitis B Vaccines Completed 01/14/2022, 11/26 [facility]-Pneumococcal Vaccine: 50+ Years Completed 02/03/2023, 2017 [facility]-Obesity Intervention Completed 025, 02/12/2025, 12/19/2024 HPV Vaccines Aged Out No longer eligi ble based on patient's age to complete this topic [facility]-HIB Vaccines Aged Out No longer e ligible based on patient's age to complete this topic [facility]-Hepatitis A Vaccines Aged Out No longer eligible based on patient's age to complete this topic [facility]-IPV Vaccines Aged Out No longer e ligible based on patient's age to complete this topic [facility]-Rotavirus Vaccines Aged Out No lo nger eligible based on patient's age to complete this topic Medical Devices Implanted Type Area Corporate Giving Manager Device Identifier Shelf Expiration Date Model / Serial / Lot Knee Knee Left: Knee Insurance [facility] [place] [id number] Advance Directives * Full Code (Latest Code Status on File) Date Activated Date Inactivated Comments 05/02/2025 5:55 PM 05/03/2025 12:51 PM Question Answer Comments I have reviewed the capacity from the link above and, if needed, have updated to appropriate status: Yes Care Teams Undergraduate Internship Relationship Specialty Start Date End Date Liliane Tabares APRN [facility] [place] [address] PCP - General 12/19/24 Nikki Wilson PA [id number] [place] [phone] Physician Correctional Officer Captain Urology 12/19/24
--- OUTSIDE RECORDS SUMMARY | 2025-08-23 13:50 | XMS_ITS | Clinical Summary ---
Author Organization [facility] Address [address] [place] [address] [address] [place] [address] Phone Care Team Providers Care Wood Inspector Name Role Phone Marta Neville [phone] Conditions or Problems Problem Name Problem Code Onset Date Status Entry Date Provider Comment Standard Description Annotate PRE-OP EXAM 467180742 (SNOMED CT) Active Ann Walker MA Special examination - general CERVICAL SPINE STENOSIS 97378904 (SNOMED CT) Active Ann Walker MA Spinal stenosis in cervical region OVERWEIGHT 951159840 (SNOMED CT) Active Ann Walker MA Overweight Medications Medication Instructions Start Date Stop Date Generic Name [facility] Provider HIBICLENS 4 % EXTERNAL LIQUID Wash the entire front of the neck the night prior to the surgery CHLORHEXIDINE GLUCONATE [id number] Bobo Villarreal MD ADVIL 200 MG TABS 4 prn Non-Yoder IBUPROFEN [id number] Ann Walker MA RESTASIS 0.05 % EMUL 1 drop every 12 hours Non-Yoder CYCLOSPORINE 37431291710 Ann Walker MA FLONASE 50 MCG/ACT NASAL SUSPENSION 2 sprays daily [facility] FLUTICASONE PROPIONATE 12034473793 Ann Walker MA REGLAN 10 MG TABS 1 bid Non-Liz METOCLOPRAMIDE HCL 84320194720 Ann Walker MA PROTONIX 40 MG TBEC 1 daily Non-Yoder PANTOPRAZOLE SODIUM 85449258525 Ann Walker MA LIPITOR 10 MG TABS 1 daily Non-Yoder ATORVASTATIN CALCIUM [id number] Ann Walker MA LIDODERM 5 % PTCH 1 patch every 12 hours prn [facility] LIDOCAINE [id number] Ann Walker MA EQL FISH OIL 1000 MG CAPS 2 daily Non-Liz OMEGA-3 FATTY ACIDS 74361640817 Ann Walker MA LISINOPRIL 20 MG TABS 1 daily Non-Liz LISINOPRIL [id number] Ann Walker MA GLUCOPHAGE XR 500 MG ORAL TABLET EXTENDED RELEASE 24 HOUR 2 qid [facility] METFORMIN HCL 04042444491 Ann Walker MA JANUVIA 50 MG TABS 1 daily -Liz SITAGLIPTIN PHOSPHATE [id number] Ann Walker MA ZOFRAN 4 MG ORAL TABLET prn [facility] ONDANSETRON HCL [id number] Ann Walker MA CYMBALTA 60 MG ORAL CAPSULE DELAYED RELEASE PARTICLES 1 DAILY -Liz DULOXETINE HCL 99647699778 Ann Walker MA FARXIGA 10 MG TABS 1 DAILY [facility] DAPAGLIFLOZIN PROPANEDIOL 30904171851 Ann Walker MA QUESTRAN 4 GM PACK 1 PACKET TID -Liz CHOLESTYRAMINE 14351382343 Ann Walker MA ULTRAM 50 MG ORAL TABLET 1-2 QHS PRN [facility] TRAMADOL HCL 26868121696 Ann Walker MA ANDROGEL 20.25 MG/1.25GM (1.62%) TRANSDERMAL GEL 2 PUMPS DAILY [facility] TESTOSTERONE [phone] Ann Walker MA Medications Administered No information available. Allergies, Adverse Reactions, Alerts Allergy Name Reaction Description Start Date Severity Statu s Provider PERCOCET Critical Ann coffey MA WELCHOL Critical Ann coffey MA WELLBUTRIN Critical Ann Si mmfrankie YAMILETH PENICILLIN Critical Ann Si seven CARSON Results No information available. Plan of Care Type Date Detail Pending order CBC Pending order Renal function p carli with BUN Pending order EKG Patient education CERVICAL%20SPI NAL%20STENOSIS Patient education CERVICAL%20SPI NAL%20STENOSIS Patient education CERVICAL%20SPI NAL%20STENOSIS Patient education CERVICAL%20SPI NAL%20STENOSIS Procedures Code Procedure Name Date Entry Date [id number] Flu Shot Previously Received [id number] Medications Documented Vital Signs Date Name Value Unit Description BMI (Body Mass Index) 32.95 kg/m2 Bod y Mass Index (Ratio) BP Diastolic 97 mm[Hg] blood pressu re, diastolic BP Systolic 151 mm[Hg] blood pressur e, systolic Heart Rate 76 /min pulse rate Height 72 [in_us] height E&M Weight Measured 243 [lb_av] weight E& M Weight Measured 243 [lb_av] weight E& M Immunizations No information available. Advance Directives No information available.
--- OUTSIDE RECORDS SUMMARY | 2025-08-23 13:50 | XMS_ITS | Clinical Summary ---
Author Organization [facility] Address [facility] [place] [address] Care Team Providers Care Editor Department Name Role Phone Chava Camarena MD Primary Care Provider [phone] Social History Tobacco Use Types Packs/Day Years Used Date Smoking Tobacco: Never Assessed Sex and Gender Information Value Date Recorded Sex Assigned at Not on file Legal Sex Male 12:13 AM EDT Gender Identity Not on file Sexual Orientation Not on file Plan of Treatment Not on file Care Teams Editor Department Relationship Specialty Start Date End Date Chava Camarena MD PCP - General 11/24/11
--- OUTSIDE RECORDS SUMMARY | 2025-08-23 13:50 | XMS_ITS | Clinical Summary ---
Author Organization [facility] Address [address] [place] [phone] Care Team Providers Care Neurodiagnostic Technician Name Role Phone Chava Camarena MD Primary Care Provider [phone] Allergies Active Allergy Reactions Criticality Noted Date Comments Penicillins Anaphylaxis 01/10/2014 Oxycodone-Acetaminophen Hives 01/10/2014 Simvastatin 01/16/2015 Medications celecoxib (CELEBREX) 200 MG PO CAPS take 200 mg by mouth daily. Active duloxetine (CYMBALTA) [address] take 60 mg by mouth as needed. Active Dexlansoprazole (DEXILANT) [address] take 60 mg by mouth daily. Active dicyclomine 10 MG PO CAPS take 10 mg by mouth as needed. Active ergocalciferol 82258 UNITS PO CAPS take 50,000 Units by mouth once a week. Active Olopatadine HCl (PATADAY) 0.2 % OP SOLN as needed. Active cyclosporin (RESTASIS) 0.05 % OP EMUL as needed. Active Krill Oil 1000 MG PO CAPS take 1,000 mg by mouth daily. Active ezetimibe (ZETIA) 10 MG Tab take 1 Tab by mouth daily. Active metformin-XR 500 MG Tab SR 24 HR 3 tabs a day 90 Tab 6 05/09/2014 Active Dexlansoprazole (DEXILANT) [address] take 120 mg by mouth daily. Active Active Problems Problem Noted Date Diagnosed Date Type II or unspecified type diabetes mellitus without mention of complication, not stated as uncontrolled 05/09/2014 Family History Medical History Relation Name Comments Lipid Disorder Father Stroke Father Vision Problems Father Lipid Disorder Mother Mental Illness Mother Vision Problems Mother Vision Problems Paternal Grandfather Vision Problems Paternal Grandmother Relation Name Status Comments Father Mother Paternal Grandfather Paternal Grandmother Social History Tobacco Use Types Packs/Day Years Used Date Smoking Tobacco: Former Smokeless Tobacco: Current Alcohol Use Standard Drinks/Week Comments Yes 0 (1 standard drink = 0.6 oz pur e alcohol) Sex and Gender Information Value Date Recorded Sex Assigned at Not on file Legal Sex Male 11:30 AM EDT Gender Identity Not on file Sexual Orientation Not on file Last Filed Vital Signs Vital Sign Reading Time Taken Comments Blood Pressure 140/96 01/16/2015 9:23 AM EDT Pulse 72 01/16/2015 9:23 AM EDT Temperature - - Respiratory Rate - - Oxygen Saturation - - Inhaled Oxygen Concentration - - Weight 103.1 kg (227 lb 3.2 oz) 01/16/2015 9:23 AM EDT Height 179.1 cm (5' 10.5 ) 01/16/2015 9:23 AM ED T Body Mass Index 32.14 01/16/2015 9:23 AM EDT Plan of Treatment Health Maintenance Due Date Last Done Comments HEPATITIS C VIRUS SCREENING 1966 TETANUS 1966 HIV SCREENING DISCUSSION 1981 HEP B VACCINE (1 of 3 - 19+ 3-dose series) 1985 PNEUMOCOCCAL VACCINE SERIES (1 of 2 - PCV) 1985 TDAP (ADULT) 1985 LIPID SCREENING 2006 COLORECTAL CANCER SCREENING DISCUSSION 2011 ZOSTER (SHINGLES) VACCINE (1 of 2) 2016 PROSTATE CANCER SCREENING DISCUSSION 2021 COVID-19 VACCINE (2024- season) 2025 INFLUENZA VACCINE (#1) 2025 [facility] Care Teams Neurodiagnostic Technician Relationship Specialty Start Date End Date Chava Camarena MD PCP - General Internal Medicine 01/10/14
--- OUTSIDE RECORDS SUMMARY | 2025-08-23 13:50 | XMS_ITS | Encounter Summary ---
Author Organization [facility] Address [address] [place] [address] Care Team Providers Care Vp Global Marketing [employer] Name Role Phone Liliane Tabares APRN Primary Care Provider [phone] Nikki Wilson PA Unavailable [phone] Encounter Details Date Type Department Care Team (Latest Contact Info) Description 08/13/2025 Travel Social History Tobacco Use Types Packs/Day Years [...] on file documented as of this encounter Functional Status * Calculated C-SSRS [...] Aaliyah Liz documented as of this encounter Plan of Treatment Upcoming Encounters Date Type Department Care Team (Late st Contact Info) Description 10/15/2025 10:00 AM EST Office Visit [facility] Multidisciplinary Oncology Clinic [address] [place] [address] Maru Mohr MD [address] [address] documented as of this encounter Visit Diagnoses Not on filedocumented in this encounter Additional Health Concerns Assessment Noted Time PHQ-9 Depression Total Score: 13 025 2:32 PM EDT A fall risk assessment has been complete d for the patient 08/13/2025 12:09 PM EDT A Body Mass Index follow-up plan has been documented for the patient 05/28/2025 6:50 PM EDT documented as of this encounter Care Teams Vp Global Marketing [employer] Relationship Specialty Start Date End Date Liliane Tabares APRN [address] [place] [address] PCP - General 12/19/24 Nikki Wilson PA [address] [phone] Physician Yarn Dry Room Worker Urology 12/19/24 documented as of this encounter
--- OUTSIDE RECORDS SUMMARY | 2025-08-23 13:51 | XMS_ITS | Encounter Summary ---
Author Organization [facility] Address [address] [place] [address] Care Team Providers Care Tunnel Kiln Firer Name Role Phone Liliane Tabares APRN Primary Care Provider [phone] Nikki Wilson Unavailable [phone] Encounter Details Date Type Department Care Team (Late st Contact Info) Description 02/12/2025 Orders Only External Location [address] [place] [address] Provider, External Social History Tobacco Use Types Packs/Day Years Used Date Smoking Tobacco: Former Cigarettes 1 15 Passive Smoke Exposure: Past Smokeless Tobacco: Current Snuff Alcohol Use Standard Drinks/Week Comments Yes 0 (1 standard drink = 0.6 oz pur e alcohol) PHQ-2 Answer Date Recorded Patient Health Questionnaire-2 Score 0 02/12/2025 PHQ-9 Answer Date Recorded Patient Health Questionnaire-9 Score 18 12/19/2024 Sex and Gender Information Value Date Recorded Sex Assigned at Not on file Legal Sex Male 11:17 AM EDT Gender Identity Not on file Sexual Orientation Not on file documented as of this encounter Functional Status * Over the past 2 weeks, how often have you been bothered by any of the following problems? Question Answer Date of Assessment Author Little interest or pleasure in doing things Not at all 02/12/2025 10:27 AM EDT Marianne Love Feeling down, depressed, or hopeless Not at all 02/12/2025 10:27 AM EDT Marianne Love Patient Health Questionnaire -2 Score 0 02/12/2025 10:27 AM EDMarianne Ruelas documented as of this encounter Plan of Treatment Upcoming Encounters Date Type Department Care Team (Late st Contact Info) Description 10/15/2025 10:00 AM EST Office Visit [facility] [address] [place] [address] Maru Mohr MD [address] [phone] documented as of this encounter Procedures Procedure Name Priority Date/Time Associated Diagnosis Comments POC ULTRASOUND 02/12/2025 documented in this encounter Results * POC Imaging (02/12/2025) Anatomical Region Laterality Modality Pelvis Other 02/12/2025 us External Provider IMG POINT OF CARE ULTRASOUND F inal Result documented in this encounter Visit Diagnoses Not on filedocumented in this encounter Additional Health Concerns Assessment Noted Time PHQ-9 Depression Total Score: 18 025 1:53 PM EST A fall risk assessment has been complete d for the patient 12/19/2024 1:53 PM EST A Body Mass Index follow-up plan has been documented for the patient 02/21/2025 11:08 AM EDT documented as of this encounter Care Teams Tunnel Kiln Firer Relationship Specialty Start Date End Date Liliane Tabares APRN [facility] [place] [address] PCP - General 12/19/24 Nikki Wilson PA [address] [facility] [place] [address] Physician Composite Technician Urology 12/19/24 documented as of this encounter
--- OUTSIDE RECORDS SUMMARY | 2025-08-23 13:51 | XMS_ITS | Encounter Summary ---
Author Organization [facility] Address [address] [place] [address] Care Team Providers Care Sheet Heater Name Role Phone Liliane Tabares APRN Primary Care Provider [phone] Nikki Wilson Unavailable Encounter Details Date Type Department Care Team (Late st Contact Info) Description 07/30/2025 Telephone [facility] [address] [place] [address] Mary Lou Aparicio PA [address] [place] [address] Social History Tobacco Use Types Packs/Day Years [...] on file documented as of this encounter Miscellaneous Notes * Telephone Encounter - Geraldine March RN - 07/30/2025 2:09 PM EDT Called and spoke with patient and rescheduled for 08/13/25 per patient request. * Telephone Encounter - Daniela Ly - 07/30/2025 8:46 AM EDT Patient Phone Message Reason for Call: Patient needs to re-schedule appt today 10-6 with [employer] due to being called in to work. Asking tore-schedule it for tomorrow. Best contact number and optimal time of day to reach caller: [phone] Please call patient with new appt day and time. Note: Please do not reply to this message. Follow-up communication and further actions as a result of this message need to be communicated with the patient directly, if the patient is not active onMyChart. If the patient is active on MyChart, they will receive notification of the communication/outcome via [employer]. documented in this encounter Plan of Treatment Upcoming Encounters Date Type Department Care Team (Late st Contact Info) Description 10/15/2025 10:00 AM EST Office Visit [facility] [address] [place] [address] Maru Mohr MD [address] [facility] [address] [place] [address] documented as of this encounter Visit Diagnoses [...] documented as of this encounter Care Teams Sheet Heater Relationship Specialty Start Date End Date Liliane Tabares APRN [facility] [place] [address] PCP - General 12/19/24 Nikki Wilson PA [phone] [place] [phone] Physician Laundry Machine Mechanic Urology 12/19/24 documented as of this encounter
--- OUTSIDE RECORDS SUMMARY | 2025-08-23 13:51 | XMS_ITS | Encounter Summary ---
Author Organization [place] [address] Care Team Providers Care Glass Artist Name Role Phone Irving Amaya MD Primary Care Provider Reason for Visit * Reason Onset Date Comments Medication Refill 04/07/2017 Encounter Details Date Type Department Care Team (Late st Contact Info) Description 04/07/2017 Refill SEP [facility] [address] [facility] [address] [place] [phone] Ines Pan, BAND TEACHER [address] [place] [address] Medication Refill Social History Tobacco Use Types Packs/Day Years [...] 11:53 AM EDT) No Irving Amaya MD documented as of this encounter Visit Diagnoses Not on filedocumented in this encounter Care Teams Glass Artist Relationship Specialty Start Date End Date Irving Amaya MD [address] [place] [address] PCP - General Family Medicine 05/21/15 documented as of this encounter
--- OUTSIDE RECORDS SUMMARY | 2025-08-23 13:51 | XMS_ITS | Clinical Summary ---
Author Organization [facility] Address [address] [place] [phone] Phone Care Team Providers Care Battery Container Finishing Hand Name Role Phone Irving Amaya MD Primary Care Provider Allergies Active Allergy Reactions Criticality Noted Date Comments Aspirin Nausea Only 05/21/2015 Unclassified Drug Nausea And Vomiting High 0 Banana pepper Penicillins Hives,Anaphylaxis High 01/10/2014 Oxycodone-Acetaminophen Hives 11/26/2014 itching Colesevelam Hives 10/04/2020 itching Bupropion Other (See Comments) 08/02/2019 Severe agitation, psychosis Medications * This document contains information received from the source organization and may not represent a complete record from that organization. multivitamin (THERAGRAN) Oral TabletIndications: Diabetes type 2, controlled (HCC) Take 1 Tab by mouth daily. Active fluticasone (FLONASE) 50 mcg/actuation Nasl [place], SuspensionIndicati ons:Acute bacterial sinusitis 2 Sprays by Nasal route daily. 1 Bottle 2 09/25/20 16 Active Bwnoj-7-[id number]-EPA-Fi sh Oil (FISH OIL) 1,000 mg (120 mg-180 mg) Oral CapsuleIndications :Hyperlipidemia, unspecified hyperlipidemia type Take 2,000 mg by mouth daily. 05/18/20 18 Active sildenafiL, pulm.hypertension, (REVATIO) 20 mg Oral Tablet Take 1-5 Tabs by mouth daily as needed. 30 Tab 5 12/03/19 21 Active Additional Information Patient not taking.Reason: Other, Reported on 07/30/2024 Varenicline 0.5 mg (11)- 1 mg (42) Oral Tablets, Dose PackIndications:Sm okeless tobacco use TAKE DIRECTED ON DOSE PACK 53 Tablet 12/14/19 23 Active testosterone enanthate (XYOSTED) 100 mg/0.5 mL SubQ Auto-InjectorIndic ations:Low testosterone Subcutaneous (Inject under the skin) 100 mg once a week. 6 Each 1 03/04/20 23 Active dulaglutide (TRULICITY) 1.5 mg/0.5 mL SubQ Pen InjectorIndication s:Type 2 diabetes mellitus without complication, unspecified whether assisted insulin use,Type 2 diabetes mellitus without complication, without long-term current use of insulin (HCC) Subcutaneous (Inject under the skin) 0.5 mL once a week. 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 NEEDS APPT 180 Tablet 05/31/20 23 Active DULoxetine (CYMBALTA) 60 mg Oral Capsule, Delayed Release(E.C.)Indic ations:Anxiety TAKE 1 CAPSULE BY MOUTH EVERY DAY 90 Capsule 2 06/02/20 23 Active gabapentin (NEURONTIN) 300 mg Oral CapsuleIndications :Chronic bilateral low back pain without sciatica TAKE 3 CAPSULES BY MOUTH 3 TIMES DAILY. 270 Capsule 5 06/08/20 23 Active busPIRone (BUSPAR) 10 mg Oral TabletIndications: Anxiety TAKE 1 TABLET BY MOUTH 3 TIMES DAILY NEEDED. MAY TAKE ADDITIONAL DOSE AT BEDTIME 120 Tablet 06/23/20 23 Active prazosin (MINIPRESS) 2 mg Oral Capsule TAKE 1 CAPSULE BY MOUTH EVERY NIGHT 30 Capsule 09/08/20 23 Active methocarbamoL (ROBAXIN) 500 mg Oral TabletIndications: Chronic cervical pain,Radicular pain in right arm TAKE 1-2 TABLETS BY MOUTH NIGHTLY NEEDED FOR MUSCLE SPASMS. 30 Tablet 09/08/20 23 Active amLODIPine (NORVASC) 5 mg Oral TabletIndications: Type 2 diabetes mellitus without complication, unspecified whether assisted insulin use TAKE 1 TABLET BY MOUTH EVERY DAY 30 Tablet 10/04/20 23 Active atorvastatin (LIPITOR) 20 mg Oral TabletIndications: Type 2 diabetes mellitus without complication, unspecified whether assisted insulin use TAKE 1 TABLET BY MOUTH EVERY DAY 30 Tablet 10/04/20 23 Active SITagliptin phosphate (JANUVIA) 50 mg Oral Tablet TAKE 1 TABLET BY MOUTH EVERY DAY 30 Tablet 12/03/19 24 Active lisinopriL (PRINIVIL;ZESTRIL) 20 mg Oral Tablet tabletIndications: Type 2 diabetes mellitus without complication, without long-term current use of insulin (HCC) TAKE 1 TABLET BY MOUTH EVERY DAY 30 Tablet 12/22/19 24 Active omeprazole (PRILOSEC) 20 mg Oral Capsule, Delayed Release(E.C.)Indic ations:Gastroesoph ageal reflux disease with esophagitis without hemorrhage TAKE 1 CAPSULE BY MOUTH 2 TIMES DAILY (BEFORE MEALS). 60 Capsule 03/03/20 24 Active pantoprazole (PROTONIX) 40 mg Oral Tablet, Delayed Release (E.C.)Indications: Gastroesophageal reflux disease with esophagitis without hemorrhage TAKE 1 TABLET BY MOUTH DAILY. TAKE IN AM 30 Tablet 03/03/20 24 Active ARIPiprazole (ABILIFY) 5 mg Oral TabletIndications: Anxiety TAKE 1 TABLET BY MOUTH EVERY DAY 30 Tablet 03/03/20 24 Active tamsulosin (FLOMAX) 0.4 mg Oral CapsuleIndications :BPH without urinary obstruction TAKE 1 CAPSULE BY MOUTH EVERY DAY AT NIGHT 30 Capsule 03/03/20 24 Active Active Problems Patient Care Coordination No te Formatting of this note migh t be different from the original. UDS 09-13-2018 consistent, 09/27/2020,05/23/2021,05/18/2022 NICOLE: 07/30/2021 Problem Noted Date Diagnosed Date Chronic bilateral low back pain without sciatica 12/22/2018 Sleep apnea 08/05/2016 Shift work sleep disorder 08/05/2016 Erectile disorder due to medical condition in ma le patient 03/25/2016 BPH with urinary obstruction 03/25/2016 Hypogonadism in male 03/25/2016 Screening PSA (prostate specific antigen) 2015 Nausea, vomiting, and diarrhea 01/02/2016 Irritable bowel syndrome with diarrhea 5 GERD without esophagitis 09/10/2015 Difficulty defecating 09/10/2015 Type 2 diabetes mellitus without complication Hyperlipidemia 08/05/2015 Gastroparesis 08/05/2015 Resolved Problems Problem Noted Date Diagnosed Date Resolved Date Abdominal wall pain in left lower quadrant 09/10/2015 01/02/2016 Vomiting and diarrhea 08/05/20152014 Hypokalemia 08/05/2015 2015 Klebsiella pneumoniae infection 08/05/2015 01/02/2016 Overview (08/05/2015): Present in stool. Uncertain if pathogenic. Small bowel obstruction 08/02/201508/25 Intractable vomiting with nausea 07/03/2015 2015 Diarrhea 07/03/2015 2015 Diabetes type 2, uncontrolled 06/27/2015 2015 Biliary colic 11/28/2014 12/18/2014 Umbilical hernia 11/28/2014 12/18/2014 Encounter for screening for diabetes mellitus 2015 Non-intractable vomiting with nausea 2015 Encounters Date Type Department Care Team Description 07/12/2025 11:45 AM EDT - 07/12/2025 11:59 PM EDT Hospital Encounter [facility] [place] [address] Malignant neoplasm of prostate (HCC) (Primary Dx) Discharge Disposition: Home or Self Care 07/12/2025 10:33 AM EDT - 07/12/2025 11:44 AM EDT Hospital Encounter [facility] Physical Therapy [address] [address] Brandy Edmondson, PT Discharge Disposition: Home or Self Care 06/18/2025 10:38 AM EDT - 06/18/2025 11:59 PM EDT Hospital Encounter [facility] Physical Therapy [address] [address] Brandy Edmondson, PT Discharge Disposition: Home or Self Care 06/18/2025 Telephone [facility] [place] [id number] [place] [address] Kemi Joel MA Referral 06/05/2025 12:57 PM EDT - 06/05/2025 11:59 PM EDT Hospital Encounter [facility] Physical Therapy [address] [address] [place], Brandy Kim PT Discharge Disposition: Home or Self Care from Last 3 Months Immunizations Immunization Administration Dates Next Due Hepatitis B (Recombinant), Adjuvanted 01/14/2022 ,12/17/2021 Influenza Intradermal 08/23/2014 Influenza Patient Reported 06/08/2018 Influenza Vaccine Quadrivalent 09/07/2018,2016 Influenza Vaccine Quadrivalent PF 07/31/2021,06/2019,08/02/2015 Moderna SARS-CoV-2 Vaccine 1 2+ Yrs (Light blue border) 12/16/2020,11/14/2020 Pneumococcal Conjugate Vaccine 20 Valent 023 Pneumococcal Polysaccharide 23 Valent 2017 Tdap 07/31/2021 Surgical History Surgery Date Site/Laterality Comments KNEE SURGERY 10/25/11 and 10/25/85 MANDIBLE SURGERY rt fx ANUS SURGERY fissure CHOLECYSTECTOMY, LAPAROSCOPIC 12/04/2014 N/A LAPAROSCOPIC CHOLECYSTECTOMY ,OPEN UMBILICAL HERNIA REPAIR ; Surgeon: Marina Nieves MD; Location: [facility]; Service: General UMBILICAL HERNIA REPAIR 12/04/2014 N/A Surgeon: Marina Nieves MD; Location: [facility]; Service: General COLONOSCOPY UPPER GASTROINTESTINAL ENDOSCOPY ABDOMEN SURGERY 10/25/2014 - 10/24/2015 Gallbladder FRACTURE SURGERY 10/25/1987 - 10/24/1988 Trimaleor fracture ORIF HERNIA REPAIR 10/25/2014 - 10/24/2015 Umbilical TOTAL KNEE ARTHROPLASTY 10/12/2020 Left LEFT TOTAL KNEE ARTHROPLASTY; Surgeon: Brandon Angel MD; Location: [facility]; Service: Orthopedics Medical devices from this surgery are in the Medical Devices section. JOINT REPLACEMENT 10/12/2020 Left Knee Medical History Medical History Date Comments Diabetes 1.5, managed as type 2 (HCC) Hyperlipidemia IBS (irritable bowel syndrome) 1991 Heartburn Hypertension Chronic gastritis GERD (gastroesophageal reflux disease) Wears prescription eyeglasses Sleep apnea BiPAP Arthritis Prostate disorder BPH PTSD (post-traumatic stress disorder) Dess[place] Storm Anesthesia complication woke dur ing surgery x2 and remembered all of procedure, when given versed for spinal injections felt and remembered all of the procedure, local anesthesia was ineffective at regular doses Chronic back pain Depression Family History Medical History Relation Name Comments Arthritis Father Samm Goff Cancer Father Samm Goff High Blood Pressure Father Samm Goff High Cholesterol Father Samm Goff Stroke Father Samm Goff Heart Disease Maternal Grandfather Brooks high Arthritis Mother Miriam Goff Depression Mother Miriam Goff Bi-polar High Cholesterol Mother Miriam Goff Mental Illness Mother Miriam Goff Bi-polar Heart Disease Paternal Grandfather Sen Goff Stroke Paternal Grandmother Alessandra Goff Anesth Problems Neg Hx Colon Cancer Neg Hx Esophageal Cancer Neg Hx Liver Cancer Neg Hx Liver Disease Neg Hx Rectal Cancer Neg Hx Stomach Cancer Neg Hx Unknown Neg Hx Relation Name Status Comments Father Samm Goff Maternal Grandfather Brooks high Mother Miriam Goff Alive Paternal Grandfather Sen Goff Paternal Grandmother Alessandra Goff Social History Tobacco Use Types Packs/Day [...] Answer Date Recorded PHQ-2 Score 0 03/15/2019 [facility] [place] [facility] Occup[facility] - Occupational Stress [...] place to sleep or slept in a half-way (including now)? No 06/14/2023 Sexually Active Control Partners Comments Yes Female Sex and Gender Information Value Date Recorded Sex Assigned at Not on file Legal Sex Male 4:13 PM EST Gender Identity Not on file Sexual Orientation Not on file Last Filed Vital Signs Vital Sign Reading Time Taken Comments Blood Pressure 140/94 07/30/2024 3:55 PM EDT Pulse 93 07/30/2024 3:55 PM EDT Temperature 36.3 C (97.4 F) 06/13/2023 1:55 PM EDT Respiratory Rate 18 06/13/2023 1:55 PM EDT Oxygen Saturation 99% 07/30/2024 3:55 PM EDT Inhaled Oxygen Concentration - - Weight 106.1 kg (234 lb) 07/30/2024 3:55 PM EDT Height 182.9 cm (6') 07/30/2024 3:55 PM EDT Body Mass Index 31.74 07/30/2024 3:55 PM EDT Plan of Treatment Health Maintenance Due Date Last Done Comments Cologuard 2011 Sigmoidoscopy 2011 Virtual Colonography 2011 Zoster (1 of 2) 2016 FIT 03/17/2020 03/17/2019, 08/23/2015 Kidney Health: uACR 09/27/2021 09/27/2020, 07/27/2019, 09/07/2018, Additional history exists Lipids 04/30/2023 04/30/2022, 03/25, 09/27/2020, Additional history exists Annual Wellness Exam 05/18/2023 05/18/2022, 09/27/2020, 09/07/2018, Additional history exists Hemoglobin A1c 08/04/2023 02/02/2023, 07/0 04/2022, 10/08/2021, Additional history exists Kidney Health: eGFR 06/13/2024 06/13/2023, 02/02/2023, 04/30/2022, Additional history exists Diabetic Eye Exam 07/11/2024 07/11/2022, , 06/29/2020, Additional history exists Colon Cancer Screening 12/21/2024 Colonoscopy 12/21/2024 12/21/2014, 11/25/2014 COVID-19 Vaccine ( season) 2025 09/08/2021, 12/16/2020, 11/14/2020 Influenza Vaccine (#1) 2025 , 11/29/2023, 07/31/2021, Additional history exists DTaP/TDaP/Td (2 - Td or Tdap) 07/31/2031 07/31/2021 Hepatitis B Vaccine Completed 01/14/2022, 2 Pneumococcal Vaccine 50+ Completed 02/03/2023, 07/25 Meningococcal B Vaccine Aged Out No l onger eligible based on patient's age to complete this topic Goals Goal Patient Goal Type Associated Problems [...] Plan PTSD No Keven Berg Psy D Medical Devices Implanted Type Area 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 Device Identifier Shelf Expiration Date Model / Serial / Lot Wire,Pin In Jaw Extension Stem Persona Tapered Cemented 14mm +30 - [id number] Implanted:Qty: 1 on 10/12/2020 by Brandon Angel MD at [facility] Left: Knee VANCE:VANCE [id number] 09/02/2030 [id number] / / [id number] Cement Bn Refobacin St Latex Free Disposable - [id number] Implanted:Qty: 1 on 10/12/2020 by Brandon Angel MD at [facility] Left: Knee VANCE:VANCE 07/24/2022 [id number] / / [id number] Surface Articular Ps Fixed Persona Left 12mm (Fem 6-9tibef) - [id number] Implanted:Qty: 1 on 10/12/2020 by Brandon Angel MD at [facility] Left: Knee VANCE:VANCE [id number] 04/23/2025 [id number] / / [id number] Patella All Poly Cemented Persona 35mm 9.0mm Thickness - [id number] Implanted:Qty: 1 on 10/12/2020 by Brandon Angel MD at [facility] Left: Knee VANCE:VANCE [id number] 08/31/2028 [id number] / / [id number] Femur Persona Ps Porous Standard Size 8 Left - [id number] Implanted:Qty: 1 on 10/12/2020 by Brandon Angel MD at [facility] Left: Knee VANCE:VANCE [id number] 08/24/2028 [id number] / / [id number] Tibia Cemented Persona 5 Degree Stemmed Left Size F - [id number] Implanted:Qty: 1 on 10/12/2020 by Brandon Angel MD at [facility] Left: Knee VANCE:VANCE [id number] 06/17/2030 [id number] / / [id number] Procedures Procedure Name Priority Date/Time Associated Diagnosis Comments PROSTATE SPECIFIC ANTIGEN (TUMOR MARKER) Callback 07/12/2025 12:18 PM EDT Malignant neoplasm of prostate (HCC) BASIC METABOLIC PANEL STAT 06/13/2023 2:44 PM EDT HEMOGLOBIN A1C Routine 02/02/2023 11:53 AM EDT Type 2 diabetes mellitus without complication, unspecified whether assisted insulin use (HCC) DIABETES EYE EXAM Routine 07/11/2022 LIPID SCREEN Routine 04/30/2022 7:47 AM EDT Annual physical exam ALBUMIN/CREATININE RATIO, RANDOM URINE Routine 09/27/2020 4:47 PM EST Type 2 diabetes mellitus without complication, without long-term current use of insulin (HCC) FECAL HEME (FIT) CANCER SCREEN Routine 03/17/2019 11:31 AM EDT Diarrhea, unspecified type Abdominal pain, LLQ (left lower quadrant) Non-intractable vomiting with nausea, unspecified vomiting type COLONOSCOPY Routine 12/21/2014 Screening for colon cancer from Last 3 Months or Most Recently Relevant to Health Maintenance Results * PROSTATE SPECIFIC ANTIGEN (TUMOR MARKER) (07/12/2025 12:18 PM EDT) Total Psa <0.04 <=4.00 ng/mL 07/12/2025 1:28 PM EDT [facility] Blood VENOUS BLOOD / Unknown Venipuncture / Unknown 07/12/2025 12:18 PM EDT 07/12/2025 12:18 PM EDT Narrative [facility] - 07/12/2025 1:28 PM EDT [facility] [place] [...] Mohr MD CHEMISTRY ORDERABLES Fi nal Result [facility] [address] , [place] [address] * (ABNORMAL) BASIC METABOLIC PANEL (06/13/2023 2:44 PM EDT) Sodium 136 136 - 145 mmol/L 06/13/2023 3:18 PM EDT [facility] Potassium 4.2 3.5 - 5.0 mmol/L 06/13/2023 3:18 PM EDT [facility] Chloride 102 98 - 107 mmol/L 06/13/2023 3:18 PM EDT [facility] Total CO2 23 22 - 29 mmol/L 06/13/2023 3:18 PM EDT [facility] Anion Gap 11 7 - 16 mmol/L 06/13/2023 3:18 PM EDT [facility] Calcium 9.1 8.6 - 10.4 mg/dL 06/13/2023 3:18 PM EDT [facility] Glucose Lvl 136(H) 74 - 100 mg/dL 06/13/2023 3:18 PM EDT [facility] BUN 13 6 - 20 mg/dL 06/13/2023 3:18 PM EDT [facility] Creatinine 0.98 0.67 - 1.30 mg/dL 06/13/2023 3:18 PM EDT [facility] eGFR (CKD-EPIcr 2020) 91 >=60 mL/min/1.7 3 m2 06/13/2023 3:18 PM EDT [facility] Comment:Estimated GFR was ca lculated using the CKD-EPIcr (2020) equation refit without race. The equation is recommended by the National Kidney Foundation - [place] Society of Nephrology Task Force. Blood VENOUS BLOOD / Unknown Venipuncture / Unknown 06/13/2023 2:44 PM EDT 06/13/2023 2:58 PM EDT Minh Hancock MD CHEMISTRY ORDERABLES Final Result Performing Organization Address [facility] Co de Phone Number [facility] [address] [place] [address] * (ABNORMAL) HEMOGLOBIN A1C (02/02/2023 11:53 AM EDT) Pathologist [facility] Hgb A1C 6.7(H) 4.2 - 5.6 % 02/02/2023 3:34 PM EDT [facility] Est. Avg Glucose 146 mg/dL 02/02/2023 3:34 PM EDT [facility] Blood VENOUS BLOOD / Unknown Venipuncture / Unknown 02/02/2023 11:53 AM EDT 02/02/2023 11:53 AM EDT Narrative [facility] - 02/02/2023 3:34 PM EDT REFERENCE RANGE: Normal: 4.0-5.6% Pre-diabetes: 5.7-6.4% Provisional diagnosis of diabetes: >6.4% Hgb F>10% and anything which shortens red cell survival, such as hemolytic anemia, or unstable hemoglobin variants such as HbSS, HbSC, or HbCC, will lower the HbA1c value associated with a given level of glycemic control. Ivring Amaya MD CHEMISTRY ORDERABLES F inal Result Performing Organization Address [facility]/ZIP Co de Phone Number [facility] [address] [place] [address] , [place] [address] * HM DIABETES EYE EXAM (07/11/2022) Left Diabetic Retinopathy Not Present Present/Not Present [facility] Right Diabetic Retinopathy Not Present Present/Not Present SEP OFFICE us Historical Provider HEALTH MAINTENANCE Final Res ult SEP OFFICE * (ABNORMAL) LIPID SCREEN (04/30/2022 7:47 AM EDT) Cholesterol 138 <200 mg/dL 04/30/2022 12:13 PM EDT [facility] Comment: < 200 Desirable 200 - 239 Borderline High >= 240 High Triglyceride 152(H) <150 mg/dL 04/30/2022 12:13 PM EDT [facility] Comment: < 150 Normal 150 - 199 Borderline High 200 - 499 High >= 500 Very High HDL 30(L) >=40 mg/dL 04/30/2022 12:13 PM EDT [facility] Comment: > 60 Optimal 40 - 60 Acceptable < 40 Low LDL Calculated 81 <100 mg/dL 04/30/2022 12:13 PM EDT [facility] Comment: < 100 Optimal 100 - 129 Near or above optimal 130 - 159 Borderline High 160 - 189 High >= 190 Very High Non-HDL-C Calculated 108 <=129 mg/dL 04/30/2022 12:13 PM EDT [facility] Comment: <130 Desirable 130-159 Above Desirable 160-189 Borderline High 190-219 High >= 220 Very High Fasting Specimen? Yes None 022 12:13 PM EDT [facility] Blood VENOUS BLOOD / Unknown Venipuncture / Unknown 04/30/2022 7:47 AM EDT 04/30/2022 7:47 AM EDT Irving Amaya MD CHEMISTRY ORDERABLES F inal Result [facility] [address] , [place] [address] [facility] [address] [place] [address] * MICROALBUMIN/CREATININE RATIO URINE (09/27/2020 4:47 PM EST) Urine Albumin <12.0 mg/L 09/27/2020 8:54 PM EST [facility] Urine Creatinine 57.5 mg/dL 09/27/20 8:54 PM EST [facility] Ur Albumin/Creat Ratio 09/27/2020 8:54 PM EST [facility] Comment: Because the albumin level is below the level of detection in this urine specimen, the laboratory is unable to calculate a reliable albumin/creatinine ratio. Microalbuminuria is unlikely if the urine albumin concentration is less than 20- 30 mg/L in a random specimen. Urine STRUCTURE OF URINARY TRACT PROPER / Unknown 09/27/2020 4:47 PM EST 09/27/2020 4:47 PM EST Irving Amaya MD URINE ORDERABLES Final Result Performing Organization Address [facility] Co de Phone Number [facility] [address] , [place] [address] * FECAL HEME (FIT) CANCER SCREEN (03/17/2019 11:31 AM EDT) Fecal Immunochemical Test Negative Negative 03/17/2019 5:26 PM EDT [facility] Stool 03/17/2019 11:3 1 AM EDT 03/17/2019 11:31 AM EDT Irving Amaya MD IMMUNOLOGY ORDERABLES Final Result Performing Organization Address [facility] Co de Phone Number [facility] [address] , [place] [address] * HM COLONOSCOPY (12/21/2014) Impressions SEP OFFICE - 12/21/2014 [facility] 12/21/2014 Normal colonoscopy up to terminal ileum, random biopsies obtained Mild sigmoid diverticulosis Historical Provider HEALTH MAINTENANCE Final Res ult Performing Organization Address City/[facility] Co de Phone Number SEP OFFICE from Last 3 Months or Most Recently Relevant to Health Maintenance Additional Health Concerns Active Problems Noted Date Diagnosed Date Unipolar Depression 02/05/2023 PTSD 02/05/2023 Insurance [place] [id number] [employer] Advance Directives For more information, please contact: [phone] * Full Code (Latest Code Status on File) Date Activated Date Inactivated Comments 08/03/2015 9:15 PM 08/06/2015 5:42 PM Care Teams Battery Container Finishing Hand Relationship Specialty Start Date End Date Irving Amaya MD [address] [place] [address] PCP - General Family Medicine 05/21/15
--- OUTSIDE RECORDS SUMMARY | 2025-08-23 13:51 | XMS_ITS | Clinical Summary ---
Author Organization [facility] Address [address] [place] [address] Care Team Providers Care Credit Administration Manager Name Role Phone Unavailable Primary Care Provider Unavailabl e Social History Tobacco Use Types Packs/Day Years Used Date Smoking Tobacco: Never Assessed Sex and Gender Information Value Date Recorded Sex Assigned at Not on file Legal Sex Male 2:51 PM EDT Gender Identity Not on file Sexual Orientation Not on file Plan of Treatment Not on file
--- OUTSIDE RECORDS SUMMARY | 2025-08-23 13:51 | XMS_ITS | Encounter Summary ---
Author Organization [facility] Address [address] [place] [address] Care Team Providers Care Clock Repairer Name Role Phone Liliane Tabares APRN Primary Care Provider Nikki Wilson PA Unavailable [phone] Encounter Details Date Type Department Care Team (Latest Contact Info) Description 07/13/2025 Travel Social History Tobacco Use Types Packs/Day Years Used Date Smoking Tobacco: Former Cigarettes 1 15 Passive Smoke Exposure: Past Smokeless Tobacco: Current Snuff Alcohol Use Standard Drinks/Week Comments Yes 0 (1 standard drink = 0.6 oz pur e alcohol) social, once a month PHQ-2 Answer Date Recorded Patient Health Questionnaire-2 Score 0 07/13/2025 PHQ-9 Answer Date Recorded Patient Health Questionnaire-9 [...] pleasure in doing things Not at all 07/13/2025 11:24 AM EDT Jayde Saenz Feeling down, depressed, or hopeless Not at all 07/13/2025 11:24 AM EDT Jayde Saenz Patient Health Questionnaire -2 Score 0 07/13/2025 11:24 AM EDT Jayde Saenz * Question Answer Date of Assessment Author Thoughts that you would be b charlee off or hurting yourself in some way Not at all 07/13/2025 11:24 AM EDT Jayde Saenz documented as of this encounter Plan of Treatment Upcoming Encounters Date Type Department Care Team (Late st Contact Info) Description 10/15/2025 10:00 AM EST Office Visit [facility] [address] [place] [address] Maru Mohr MD [address] [phone] documented as of this encounter Visit Diagnoses [...] documented as of this encounter Care Teams Clock Repairer Relationship Specialty Start Date End Date Liliane Tabares APRN [address] [place] [address] PCP - General 12/19/24 Nikki Wilson PA [address] [address] Physician Supervisor [facility] 12/19/24 documented as of this encounter
--- OUTSIDE RECORDS SUMMARY | 2025-08-23 13:51 | XMS_ITS | Encounter Summary ---
Author Organization [facility] Address [address] [place] [address] Care Team Providers Care Managed Care Nurse Name Role Phone Liliane Tabares APRN Primary Care Provider [phone] Nikki Wilson PA Unavailable [phone] Encounter Details Date Type Department Care Team (Latest Contact Info) Description 07/16/2025 Travel Social History Tobacco Use Types Packs/Day [...] all 07/16/2025 2:32 PM EDT Nina Rogers Thoughts that you would be [...] Nina Hughes documented as of this encounter Plan of Treatment Upcoming Encounters Date Type Department Care Team (Late st Contact Info) Description 10/15/2025 10:00 AM EST Office Visit [facility] [address] [place] [address] Maru Mohr MD [id number] [place] [id number] documented as of this encounter Visit Diagnoses [...] documented as of this encounter Care Teams Managed Care Nurse Relationship Specialty Start Date End Date Liliane Tabares APRN [address] [place] [address] PCP - General 12/19/24 Nikki Wilson PA [address] [facility] [address] [place] [address] Physician Lumber Grader Urology 12/19/24 documented as of this encounter
--- OUTSIDE RECORDS SUMMARY | 2025-08-23 13:51 | XMS_ITS | Encounter Summary ---
Author Organization [place] [address] Care Team Providers Care Supervisory Aide Name Role Phone Irving Amaya MD Primary Care Provider Encounter Details Date Type Department Care Team (Late st Contact Info) Description 05/16/2025 Orders Only [facility] [id number] [place] [address] Raimundo Chirinos, PT Social History Tobacco Use Types Packs/Day Years [...] Answer Date Recorded PHQ-2 Score 0 03/15/2019 [facility] [place] of Occupat ional Health - Occupational Stress [...] place to sleep or slept in a intermediate (including now)? No 06/14/2023 Sexually Active Control [...] MD BMI (Calculated) < 30 General 31.8(07/30/20 24 3:55 PM EDT) No Irving Amaya MD [...] documented as of this encounter Care Teams Supervisory Aide Relationship Specialty Start Date End Date Irving Amaya MD [address] [place] [address] PCP - General Family Medicine 05/21/15 documented as of this encounter
--- OUTSIDE RECORDS SUMMARY | 2025-08-23 13:51 | XMS_ITS | Clinical Summary ---
Author Organization [facility] Address [address] [place] [address] [place] [address] Phone Care Team Providers Care Ink Jet Operator Name Role Phone Chava Camarena MD Primary Care Provider [phone] Allergies Active Allergy Reactions Criticality Noted Date Comments Penicillins Hives 11/13/2014 Oxycodone-Acetaminophen Rash 11/13/2014 Simvastatin Nausea And Vomiting 11/13/2014 Medications metFORMIN (GLUCOPHAGE) 500 MG TABS Take 500 mg by mouth 2 (two) times daily with meals. Active vitamin D-2 (ERGOCALCIFEROL) 29328 UNIT CAPS Take 50,000 Units by mouth once a week. Active ezetimibe (ZETIA) 10 MG TABS Take 10 mg by mouth daily. Active duloxetine (CYMBALTA) 60 MG CPEP Take 60 mg by mouth daily. Active celecoxib (CELEBREX) 200 MG CAPS Take 200 mg by mouth 2 (two) times daily. Active dicyclomine (BENTYL) 10 MG CAPS Take 10 mg by mouth 4 (four) times daily. Active Dexlansoprazole 60 MG CPDR Take 60 mg by mouth daily. Active Active Problems No known active problems Social History Tobacco Use Types Packs/Day Years Used Date Smoking Tobacco: Former Comments:chews tobacco Alcohol Use Standard Drinks/Week Comments Yes 0 (1 standard drink = 0.6 oz pur e alcohol) rare Sex and Gender Information Value Date Recorded Sex Assigned at Not on file Legal Sex Male 1:42 PM EST Gender Identity Not on file Sexual Orientation Not on file Last Filed Vital Signs Vital Sign Reading Time Taken Comments Blood Pressure 124/84 11/13/2014 8:55 AM EST Pulse 84 11/13/2014 8:55 AM EST Temperature - - Respiratory Rate - - Oxygen Saturation - - Inhaled Oxygen Concentration - - Weight 104.3 kg (230 lb) 11/13/2014 8:55 AM EST Height 182.9 cm (6') 11/13/2014 8:55 AM EST Body Mass Index 31.19 11/13/2014 8:55 AM EST Plan of Treatment Health Maintenance Due Date Last Done Comments DTap,Tdap,and Td (1 - Tdap) 1977 PSA YEARLY 2016 Pneumococcal 50+ (1 of 1 - PCV) 2016 Shingrix (#1) 2016 COLONOSCOPY 10 YEARS 12/21/2024 12/21/2014 (Previously Completed) Influenza Vaccine (#1) 2025 RSV Vaccine (60+ or ) (1 - 1-dose 75+ series) 2041 HPV Aged Out No longer eligi ble based on patient's age to complete this topic Meningococcal conjugate leisa nt 4 (MCV4) Aged Out No longer eligible b ased on patient's age to complete this topic RSV Immunization (<20 months) Aged Out No longer eligible based on patient's age to complete this topic Insurance [employer] ALL OTHERS NOT MEDICARE [employer] ALL OTHERS NOT MEDICARE Care Teams Ink Jet Operator Relationship Specialty Start Date End Date Chava Camarena MD PCP - General Internal Medicine 11/09/14
--- OUTSIDE RECORDS SUMMARY | 2025-08-23 13:51 | XMS_ITS ---
Care Plan Created on: August 23, 2025 Jimmy Goff : 1965 Sex: Male Author Organization [facility] Address [address] [place] [phone] Phone Care Team Providers Care Talking Books Library Clerk Name Role Phone Irving Amaya MD Primary Care Provider Active Problems * This document contains information received from the source organization and may not represent a complete record from that organization. Patient Care Coordination No te Formatting of [...] mellitus 2015 Non-intractable vomiting with nausea 2015 Additional Health Concerns Active Problems Noted Date Diagnosed Date Unipolar Depression 02/05/2023 PTSD 02/05/2023 Goals Goal Patient Goal Type Associated Problems [...] Plan PTSD No Keven Berg Psy D Interventions Care Plan Interventions Intervention Entry Date Outcome Identify triggers for PTSD symptoms 02/05/2023 Learn and implement emotional management techniques 02/05/2023 Identify anxious thought patterns 02/05/2023 Describe the history and nature of PTSD symptoms 02/05/2023 Identify and challenge negative automatic thoughts 02/05/2023 Develop healthy interpersonal relationships 02/05/2023 Develop healthy cognitive patterns related to mood 02/05/2023 Use agreed upon coping strategies 02/05/2023 Identify source of depressed mood 02/05/2023 Related Goals and Interventions Goal Associated Intervent ions Alleviate symptoms of depression Identif y and challenge negative automatic thoughts; Develop healthy interpersonal relationships; Develop healthy cognitive patterns related to mood; Use agreed upon coping strategies; Identify source of depressed mood Alleviate symptoms of PTSD Identify trig gers for PTSD symptoms; Learn and implement emotional management techniques; Identify anxious thought patterns; Describe the history and nature of PTSD symptoms
--- OUTSIDE RECORDS SUMMARY | 2025-08-23 13:51 | XMS_ITS | Encounter Summary ---
Author Organization [facility] Address [address] [place] [address] Care Team Providers Care Graphic Design Teacher Name Role Phone Liliane Tabares APRN Primary Care Provider [phone] Nikki Wilson PA Unavailable [phone] Encounter Details Date Type Department Care Team (Latest Contact Info) Description 07/12/2025 Travel Social History Tobacco Use Types Packs/Day [...] [facility] [address] [place] [address] Maru Mohr MD [address] [facility] [address] [place] [address] documented as of this encounter Visit Diagnoses Not on filedocumented in this encounter Additional Health Concerns Assessment Noted Time PHQ-9 Depression Total Score: 18 025 1:53 PM EST A fall risk assessment has been complete d for the patient 05/11/2025 10:54 AM EDT A Body Mass Index follow-up plan has been documented for the patient 05/28/2025 6:50 PM EDT documented as of this encounter Care Teams Graphic Design Teacher Relationship Specialty Start Date End Date Liliane Tabares APRN [address] [place] [address] PCP - General 12/19/24 Nikki Wilson PA [id number] [place] [address] Physician Digital Media Associate Urology 12/19/24 documented as of this encounter
== END 2025-08-22 23:59 | disposition home or self-care (01) ==
LOC: LAB.DROPOF 08-23 13:40
PROVIDERS: PCP Nurse Practitioner; Visit Provider Nurse Practitioner
DX: E78.5 Hyperlipidemia, unspecified (principal); I10 Essential (primary) hypertension; E11.9 Type 2 diabetes mellitus without complications
CPT/HCPCS: 80053; 80061; 83036